=== PATIENT | female | born 1935 | race Caucasian/White ===

== ENCOUNTER 2019-11-03 13:02 | Inpatient (IN) | payer MEDICARE ==
[~2019-11-03] VITALS: Ht 160 cm; Wt 68.0 kg
[2019-11-03] MEDS ORDERED: NORVASC5 MG PO (13:27)
[2019-11-03] MEDS ORDERED: TYLENOL ARTHRI650 MG PO (13:27)
[2019-11-03] MEDS ORDERED: TENORMIN50 MG PO (13:28)
[2019-11-03] MEDS ORDERED: COLACE100 MG PO (13:28)
[2019-11-03] MEDS ORDERED: MELATONIN 3 MG1 TAB PO (13:28)
[2019-11-03] MEDS ORDERED: DEPAKOTE250 MG PO (13:28)
[2019-11-03] MEDS ORDERED: RESTORIL7.5 MG PO (13:29)
[2019-11-03] MEDS ORDERED: REMERON15 MG PO (13:29)
[2019-11-03 13:30] VITALS: BP 139/58
[2019-11-03 14:11] LABS: BASOPHILS 0.2 % (0-2); EOSINOPHILS 5.3 % (0-7); HEMATOCRIT 36.8 % (36.0-48.0); IMMATURE GRANULOCYTES 0.5 % (0-5); LYMPHOCYTES 18.4 % (15-50); MCH 31.6 pg (26.0-34.0); MCHC 32.6 g/dL (31.0-37.0); MCV 96.8 fL (80.0-100.0); MEAN PLATELET VOLUME 10.1 fL (7.4-10.4); NEUTROPHILS 71.6 % (40-80); PLATELET COUNT 170 10x3/uL (130-400); RDW 13.8 % (11.5-14.5); WBC 6.6 10x3/uL (4.8-10.8)
[2019-11-03 14:21] LABS: CALC OSMOLALITY 281 mosm/kg (275-300); CALCIUM 9.2 mg/dL (8.5-10.1); CARBON DIOXIDE 25.1 mmol/L (21.0-32.0); CHLORIDE - SERUM 104 mmol/L (98-107); CREATININE - SERUM 1.2 mg/dL (0.6-1.3); GLUCOSE 104 mg/dL (74-106); POTASSIUM - SERUM 4.5 mmol/L (3.5-5.1); SODIUM 138 mmol/L (136-145); UREA NITROGEN 30 mg/dL (7-18); eGFR NON AFRICAN AMERICAN 45 mL/min (90-120)
[2019-11-03 14:22] LABS: INR 1.22 (0.85-1.17); PROTIME 14.9 SECONDS (11.6-15.0)
[2019-11-03 14:31] VITALS: BP 124/77
[2019-11-03 14:36] LABS: ALBUMIN 3.1 g/dL (3.4-5.0); ALKALINE PHOSPHATASE 58 U/L (46-116); ALT (SGPT) 13 U/L (10-68); BILIRUBIN - TOTAL 0.26 mg/dL (0.2-1.3); CKMB 0.4 U/L (0.0-3.6); CREATINE KINASE 51 UL (21-215); MAGNESIUM - SERUM 1.9 mg/dL (1.8-2.4); PROTEIN - SERUM 7.9 g/dL (6.4-8.2); THYROID STIMULATING HORMONE 3.11 uIU/mL (0.36-3.74); TROPONIN-I < 0.017 ng/mL (0.000-0.060); VALPROIC ACID (DEPAKOTE) 36.2 ug/mL (50.0-100.0)
[2019-11-03 15:12] LABS: APPEARANCE HAZY (CLEAR); BILIRUBIN NEGATIVE (NEGATIVE); COLOR YELLOW (YELLOW); GLUCOSE NEGATIVE (NEGATIVE); KETONE NEGATIVE (NEGATIVE); NITRITE NEGATIVE (NEGATIVE); PROTEIN NEGATIVE (NEGATIVE); UROBILINOGEN NORMAL (NORMAL)
[2019-11-03 15:13] LABS: BACTERIA FEW /hpf (NEGATIVE); EPITHELIAL CELLS 0-5 /hpf (0-5); RED CELLS - URINE OCC /hpf (0-5); WHITE CELLS - URINE 0-5 /hpf (NEGATIVE)
[2019-11-03 15:22] LABS: UDS - AMPHET NEGATIVE QUAL (NEGATIVE); UDS - BARB NEGATIVE QUAL (NEGATIVE); UDS - BENZO NEGATIVE QUAL (NEGATIVE); UDS - COCAINE NEGATIVE QUAL (NEGATIVE); UDS - OPIATE NEGATIVE QUAL (NEGATIVE); UDS - PCP NEGATIVE QUAL (NEGATIVE); UDS - THC NEGATIVE QUAL (NEGATIVE)
[2019-11-03 15:30] VITALS: BP 122/78
[2019-11-03 16:17] VITALS: BP 135/104
--- NOTE | 2019-11-03 17:17 | NUR ---
ATTEMPT TO CALL REPORT AGAIN, NURSE IS BUSY.
--- NOTE | 2019-11-03 18:23 | NUR ---
CONFUSED. ARRIVE TO ROOM VIA STRETCHER. TRANSFER TO BED. FAMILY AT BEDSIDE. MED REC COMPLETE ACCORDING TO OK RECORDS THAT WERE SENT. BED ALARM ON. IV INFUSING ORDERED. BUZZ NOLAN AT BEDSIDE. CONTINUE ADMISSION PROCESS AND SAFETY PRECAUTIONS.
[2019-11-03 18:25] VITALS: BP 106/87; BMI 26.6
--- NOTE | 2019-11-03 19:00 | NUR ---
EVENING ROUNDS COMPLETE, PT LAYING IN BED. NO SIGNS OF DISTRESS. GENERALIZED RED RASH NOTED. PT IS CONFUSED AND DISORIENTATED TO SELF, SITUATION, PLACE AND TIME. CL IN REACH, BED IN LOWEST POSITION.
[2019-11-04] VITALS: BP 126/51
[2019-11-04 04:00] VITALS: BP 148/84
[2019-11-04 06:06] LABS: BASOPHILS 0.2 % (0-2); EOSINOPHILS 0.7 % (0-7); HEMOGLOBIN 10.8 g/dL (12-16); IMMATURE GRANULOCYTES 0.2 % (0-5); MCH 31.2 pg (26.0-34.0); MCHC 32.7 g/dL (31.0-37.0); MCV 95.4 fL (80.0-100.0); MEAN PLATELET VOLUME 10.4 fL (7.4-10.4); MONOCYTES 4.1 % (2-11); NEUTROPHILS 76.8 % (40-80); PLATELET COUNT 158 10x3/uL (130-400); RBC 3.46 10x6/uL (4.00-5.40); RDW 13.8 % (11.5-14.5); WBC 5.8 10x3/uL (4.8-10.8)
[2019-11-04 06:12] LABS: ANION GAP 14.8 mmol/L (8-16); C-REACTIVE PROTEIN 3.3 mg/dL (0.0-0.9); CALCIUM 8.9 mg/dL (8.5-10.1); CARBON DIOXIDE 25.9 mmol/L (21.0-32.0); MAGNESIUM - SERUM 1.8 mg/dL (1.8-2.4); POTASSIUM - SERUM 4.7 mmol/L (3.5-5.1)
[2019-11-04 08:00] VITALS: BP 120/54
[2019-11-04 08:09] LABS: ERYTHROCYTE SEDIMENTATION RATE 42 mm/hr (0-42)
[2019-11-04 11:36] VITALS: BP 94/58
[2019-11-04 16:04] VITALS: BP 105/63
--- NOTE | 2019-11-04 17:37 | NUR ---
DRESSING TO RIGHT FOOT CHANGED AND PT TOLERATES WELL. STATES THE NORCO THAT WAS GIVEN TO HIM TODAY HAS MADE HIM SICK AND IS NOW THROWING UP. NO EMESIS NOTED IN [place] AT BEDSIDE. PT HAS BEEN INFORMED OF NPO AT MIDNIGHT AND CONSENT FORMS FOR THORACENTESIS HAVE BEEN SIGNED. PT HAS NO QUESTIONS ABOUT THE PROCEDURE, STATES HE JUST WANTS TO SLEEP TONIGHT.
--- NOTE | 2019-11-04 17:45 | NUR ---
PT HAS BEEN LETHARGIC MOST OF THE DAY AND AT ONE POINT BLOOD SUGAR WAS CHECKED AT REQUEST OF FILES SUPERVISOR WITH READING OF 86. PT IS NOW STARTING TO WAKE UP AND HAS BEEN GETTING UP OUT OF BED, PULLING AT IV AND STATES HE NEEDS TO GET OUT OF HERE TO GET TO THE BUS. ATTEMPTED TO REORIENT PT TO SURROUNDINGS.
--- NOTE | 2019-11-04 18:06 | NUR ---
I CONCUR WITH THE HVAC JOURNEYMAN ASSESSMENT OF THIS PATIENT.
--- NOTE | 2019-11-04 20:00 | NUR ---
IV STARTED TO LEFT FOREARM, 22G, X 1 ATTEMPT. WRAPPED IN KERLEX TO HELP PREVENT PT FROM REMOVING THIS IV SHE DID HER LAST ONE.
[2019-11-04 20:15] VITALS: BP 142/84
[2019-11-05] VITALS: BP 127/55
[2019-11-05 00:30] VITALS: BP 114/62
--- NOTE | 2019-11-05 04:00 | NUR ---
PT REFUSING VITAL SIGNS. SHE STATES I WILL BREAK YOUR ARM WHEN ATTEMPTED TO GET HER VITALS. RESPIRATIONS EVEN AND UNLABORED. BED LOW, BED ALARM ON AND CALL LIGHT WITHIN REACH.
--- NOTE | 2019-11-05 04:25 | NUR ---
WENT TO CHECK ON PT AND SHE HAD PULLED HER IV OUT. SHE IS CONFUSED. UNABLE TO REORIENT. NEW 22G IV STARTED TO LEFT FOREARM X 2 ATTEMPTS. BED LOW AND BED ALARM ON.
[2019-11-05 05:21] LABS: BASOPHILS 0.1 % (0-2); EOSINOPHILS 2.1 % (0-7); HEMATOCRIT 33.4 % (36.0-48.0); HEMOGLOBIN 10.8 g/dL (12-16); IMMATURE GRANULOCYTES 0.6 % (0-5); LYMPHOCYTES 20.6 % (15-50); MCHC 32.3 g/dL (31.0-37.0); MEAN PLATELET VOLUME 10.3 fL (7.4-10.4); MONOCYTES 5.4 % (2-11); NEUTROPHILS 71.2 % (40-80); PLATELET COUNT 183 10x3/uL (130-400); RBC 3.48 10x6/uL (4.00-5.40); RDW 13.8 % (11.5-14.5)
[2019-11-05 05:32] LABS: WBC 8.2 10x3/uL (4.8-10.8)
[2019-11-05 05:41] LABS: ANION GAP 14.2 mmol/L (8-16); CALCIUM 9.1 mg/dL (8.5-10.1); CARBON DIOXIDE 25.4 mmol/L (21.0-32.0); CREATININE - SERUM 1.1 mg/dL (0.6-1.3); PHOSPHOROUS 2.6 mg/dL (2.5-4.9); POTASSIUM - SERUM 4.6 mmol/L (3.5-5.1)
--- NOTE | 2019-11-05 07:42 | NUR ---
ASSISSTED PCT WITH CLEANING THE PTS INCONTINENT EPISODE. NOTICED IV WAS BEEPING. ASSESSED IV SIT TO FIND THAT THE IV WAS NOT IN THE PATIENTS ARM AND WAS JUST WRAPPED WITH KERLEX. REMOVED IV. WILL RESTART IV. PT IS CONFUSED AND STATING THAT SHE IS COLD. WARM BLANKET PROVIDED.
[2019-11-05 09:42] VITALS: BP 145/88
[2019-11-05 13:44] VITALS: Ht 160 cm; Wt 68.0 kg
[2019-11-05 16:30] VITALS: BP 125/91
--- NOTE | 2019-11-05 16:59 | MORECARE ---
CASE MANAGEMENT DISCHARGE SUMMARY PATIENT: NADER KELLER UNIT: [id number] ADM DATE: 11/03/19 AGE: 83 : 33 SEX: F ROOM/BED: D.2104 AUTHOR: BOOGIE WONG PHYSICIAN: REFERRING PHYSICIAN: LUDIN BERNARDO MD DATE OF SERVICE: 11/05/19 Discharge Plan Patient Name: NADER KELLER [facility] [facility] 1935 Planned Disposition: Longterm Facility Anticipated Discharge Date: 11/05/19 Discharge Date: Expected LOS: 2 Initial Reviewer: [id number] Initial Review Date: 11/05/2019 Generated: 11/05/19 5:59 pm Patient Name: NADER KELLER Page 64785 at 7292 All edits/amendments must be made on the electronic document DICTATION DATE: 11/05/191658 HIDE AND SKIN PROCESSING WORKER: MYLES 11/05/191658 RPT#: [id number] DC DATE: STATUS: ADM IN [facility] [address] [place] [address] END OF REPORT
--- NOTE | 2019-11-05 17:08 | MORECARE ---
CASE MANAGEMENT DISCHARGE SUMMARY PATIENT: NADER KELLER UNIT: [id number] ADM DATE: 11/03/19 AGE: 83 : 33 SEX: F ROOM/BED: D.2104 AUTHOR: JUDITH,DOC PHYSICIAN: REFERRING PHYSICIAN: LUDIN BERNARDO MD DATE OF SERVICE: 11/05/19 Discharge Plan Patient Name: NADER KELLER Facility: [facility]:[place] : 1935 Planned Disposition: Fci Facility Anticipated Discharge Date: 11/05/19 Discharge Date: Expected LOS: 2 Initial Reviewer: [id number] Initial Review Date: 11/05/2019 Generated: 11/05/19 6:08 pm Comments DCP- Discharge Planning Updated by [email or web address]: Marco Slade on 11/05/19 4:[address] Patient Name: NADER KELLER Admission Status: ER Accout number: [id number] Admission Date: 11-03-2019 : 1935 Admission Diagnosis: Attending: LUDIN BERNARDO Current LOS: 2 Anticipated DC Date: 11-05-2019 Planned Disposition: Fci Facility Primary Insurance: MEDICARE A & B PLANNED EXTERNAL PROVIDER: [facility], CUSTODIAL CARE MEDICAID BED Discharge Planning Comments: CM ATTEMPTED TO MEET WITH PT IN ROOM TO DISCUSS DISCHARGE NEEDS AND PLANNING, PT CONFUSED AND UNABLE TO PARTICIPATE. CM REVIEWED CHART WHICH INDICATES PT IS FROM [facility] AT [facility]. CM CALLED PT'S SON, TOBI BHARDWAJ, LEFT MESSAGE ASKING FOR RETURN CALL. CM CALLED [facility], . SPOKE TO TAYO WHO VERIFIED PT IS CUSTODIAL CARE RESIDENT AND THEY PLAN TO ACCEPT BACK AT DISCHARGE. TAYO PROVIDED SOCIAL SECURITY NUMBER AND CM PROVIDED IT TO HOSPITAL REGISTRATION. CM FAXED UPDATE TO [facility] AT [phone]. CM TO FOLLOW UP WITH SON, TOBI BHARDWAJ, TO COMPLETE CHOICE LETTER FOR [facility]. FOR DISCHARGE BACK TO [facility], FAX DISCHARGE INFORMATION TO [facility] AT [phone], NURSE REPORT TO BE CALLED TO [facility] AT [phone]. PT TO TRANSPORT VIA AMBULANCE. MARCO SLADE CASE MANAGEMENT DCPIA - Discharge Planning Initial Assessment Updated by [email or web address]: Marco Slade on 11/05/19 5:00 pm * Is the patient Alert and Oriented? No * How many steps to enter\exit or inside your home? NONE * PCP DR. FERNANDEZ * [facility] * Preadmission Environment [facility] * Facility Name [facility] * ADLs Total Dependent * Equipment Other * Other Equipment ALL MEDICAL EQUIPMENT PROVIDED BY FACILITY * List name and contact numbers for known caregivers / representatives who currently or will assist patient after discharge: TOBI BHARDWAJ, SON, * Verbal permission to speak to the caregivers and representatives has been obtained from the patient. N/A * Community resources currently utilized None * Please name any agencies selected above. NONE * Additional services required to return to the preadmission environment? No * Can the patient safely return to the preadmission environment? Yes * Has this patient been hospitalized within the prior 30 days at any hospital? No External Providers External Provider: [facility] Next Contact Date: 11/05/2019 Service Request Date: Service Type: Resolution: Reviewer: Comments: Patient Name: NADER KELLER Page 50779 at 1708 All edits/amendments must be made on the electronic document DICTATION DATE: 11/05/191707 FORM RAISER: MYLES 11/05/191707 RPT#: [id number] DC DATE: STATUS: ADM IN [facility] [address] [place] [address] END OF REPORT
--- NOTE | 2019-11-05 17:18 | MORECARE ---
CASE MANAGEMENT DISCHARGE SUMMARY PATIENT: NADER KELLER UNIT: [id number] ADM DATE: 11/03/19 AGE: 83 : 33 SEX: F ROOM/BED: D.2104 AUTHOR: JUDITH,DOC PHYSICIAN: REFERRING PHYSICIAN: LUDIN BERNARDO MD DATE OF SERVICE: 11/05/19 Discharge Plan Patient Name: NADER KELLER Facility: [facility]:[place] : 1935 Planned Disposition: Senior Care Facility Anticipated Discharge Date: 11/05/19 Discharge Date: Expected LOS: 2 Initial Reviewer: [email or web address] Initial Review Date: 11/05/2019 Generated: 11/05/19 6:17 pm Comments DCP- Discharge Planning Updated by [email or web address]: Marco Slade on 11/05/19 4:[address] Patient Name: NADER KELLER Admission Status: ER Accout number: [id number] Admission Date: 11-03-2019 : 1935 Admission Diagnosis: Attending: LUDIN BERNARDO Current LOS: 2 Anticipated DC Date: 11-05-2019 Planned Disposition: Senior Care Facility Primary Insurance: MEDICARE A & B PLANNED EXTERNAL PROVIDER: [facility], ALF CARE MEDICAID BED Discharge Planning Comments: CM ATTEMPTED TO MEET WITH PT IN ROOM TO DISCUSS DISCHARGE NEEDS AND PLANNING, PT CONFUSED AND UNABLE TO PARTICIPATE. CM REVIEWED CHART WHICH INDICATES PT IS FROM [facility] AT [facility]. CM CALLED PT'S SON, TOBI BHARDWAJ, LEFT MESSAGE ASKING FOR RETURN CALL. CM CALLED [facility], . SPOKE TO TAYO WHO VERIFIED PT IS ALF CARE RESIDENT AND THEY PLAN TO ACCEPT BACK AT DISCHARGE. TAYO PROVIDED SOCIAL SECURITY NUMBER AND CM PROVIDED IT TO HOSPITAL REGISTRATION. CM FAXED UPDATE TO [facility] AT [phone]. CM TO FOLLOW UP WITH SON, TOBI BHARDWAJ, TO COMPLETE CHOICE LETTER FOR [facility]. FOR DISCHARGE BACK TO [facility], FAX DISCHARGE INFORMATION TO [facility] AT [phone], NURSE REPORT TO BE CALLED TO [facility] AT [phone]. PT TO TRANSPORT VIA AMBULANCE. MARCO SLADE CASE MANAGEMENT DCPIA - Discharge Planning Initial Assessment Updated by [id number]: Marco Slade on 11/05/19 5:00 pm * Is the patient Alert and Oriented? No * How many steps to enter\exit or inside your home? NONE * PCP DR. FERNANDEZ * [facility] * Preadmission Environment [facility] * Facility Name [facility] * ADLs Total Dependent * Equipment Other * Other Equipment ALL MEDICAL EQUIPMENT PROVIDED BY FACILITY * List name and contact numbers for known caregivers / representatives who currently or will assist patient after discharge: TOBI BHARDWAJ, SON, * Verbal permission to speak to the caregivers and representatives has been obtained from the patient. N/A * Community resources currently utilized None * Please name any agencies selected above. NONE * Additional services required to return to the preadmission environment? No * Can the patient safely return to the preadmission environment? Yes * Has this patient been hospitalized within the prior 30 days at any hospital? No Last DP export: 11/05/19 4:08 pm Patient Name: NADER KELLER Page 16182 at 1718 All edits/amendments must be made on the electronic document DICTATION DATE: 11/05/191716 PARTS CLEANER: MYLES 11/05/191716 RPT#: [id number] DC DATE: STATUS: ADM IN [facility] [address] [place] [address] END OF REPORT
[2019-11-05 23:41] VITALS: BP 140/76
--- NOTE | 2019-11-06 00:06 | NUR ---
PT LYING IN BED RESTING WITH EYES CLOSED. SHOWS SIGNS OF BEING LETHARGIC. VITAL SIGNS ARE STABLE AND RESPIRATIONS EVEN AND UNLABORED. NO SIGNS OR SYMPTOMS OD DISTRESS. CONFUSED x4. INCONTINENT TO BOWELL AND URINE. WAS COMBATIVE AT BEGINNING OF SHIFT, NOW IS RESTING IN BED. CAN NOT TAKE MEDICATION DUE TO BEING LETHARGIC. REPOSITIONED PT AND PLACED CALL LIGHT AND ALL BELONGINGS WITHIN REACH. BED IN LOWEST POSITION ANDBED ALARM IS ACTIVE. WILL CONTINE TO MONITOR.
--- NOTE | 2019-11-06 04:24 | NUR ---
I have reviewed this patient and I concur with the Shift Assessment completed by the Licensed Practical Nurse today this shift.
[2019-11-06 04:48] LABS: BASOPHILS 0.4 % (0-2); EOSINOPHILS 7.5 % (0-7); HEMATOCRIT 32.9 % (36.0-48.0); HEMOGLOBIN 10.6 g/dL (12-16); IMMATURE GRANULOCYTES 0.6 % (0-5); MCH 30.7 pg (26.0-34.0); MCHC 32.2 g/dL (31.0-37.0); MCV 95.4 fL (80.0-100.0); MEAN PLATELET VOLUME 9.6 fL (7.4-10.4); MONOCYTES 11.7 % (2-11); NEUTROPHILS 42.8 % (40-80); PLATELET COUNT 179 10x3/uL (130-400); RBC 3.45 10x6/uL (4.00-5.40); RDW 13.7 % (11.5-14.5); WBC 8.1 10x3/uL (4.8-10.8)
[2019-11-06 05:32] LABS: ANION GAP 11.3 mmol/L (8-16); CARBON DIOXIDE 28.2 mmol/L (21.0-32.0); CREATININE - SERUM 1.1 mg/dL (0.6-1.3); MAGNESIUM - SERUM 1.8 mg/dL (1.8-2.4); PHOSPHOROUS 2.6 mg/dL (2.5-4.9); POTASSIUM - SERUM 4.5 mmol/L (3.5-5.1)
--- NOTE | 2019-11-06 06:12 | NUR ---
LYING IN BED RESTING WITH EYES CLOSED. NO SIGNS OR SYMPTOMS OF RESPIRATORY DISTRESS. INCONTINENT OF BOWELL AND URINE. NO COMPLAINTS OF PAIN AT THIS TIME. WILL CONTINUE TO MONITOR
[2019-11-06 08:00] VITALS: BP 148/58
[2019-11-06 12:43] VITALS: BP 169/72
--- NOTE | 2019-11-06 15:40 | MORECARE ---
CASE MANAGEMENT DISCHARGE SUMMARY PATIENT: NADER KELLER UNIT: [id number] ADM DATE: 11/03/19 AGE: 83 : 33 SEX: F ROOM/BED: D.2104 AUTHOR: JUDITH,DOC PHYSICIAN: REFERRING PHYSICIAN: LUDIN BERNARDO MD DATE OF SERVICE: 11/06/19 Discharge Plan Patient Name: NADER KELLER Facility: [facility]:[place] : 1935 Planned Disposition: Custodial Facility Anticipated Discharge Date: 11/06/19 Discharge Date: Expected LOS: 3 Initial Reviewer: [email or web address] Initial Review Date: 11/05/2019 Generated: 11/06/19 4:40 pm Comments DCP- Discharge Planning Updated by [email or web address]: Marco Slade on 11/05/19 4:[address] Patient Name: NADER KELLER Admission Status: ER Accout number: [id number] Admission Date: 11-03-2019 : 1935 Admission Diagnosis: Attending: LUDIN BERNARDO Current LOS: 2 Anticipated DC Date: 11-05-2019 Planned Disposition: Custodial Facility Primary Insurance: MEDICARE A & B PLANNED EXTERNAL PROVIDER: [facility], [facility] MEDICAID BED Discharge Planning Comments: CM ATTEMPTED TO MEET WITH PT IN ROOM TO DISCUSS DISCHARGE NEEDS AND PLANNING, PT CONFUSED AND UNABLE TO PARTICIPATE. CM REVIEWED CHART WHICH INDICATES PT IS FROM [facility] AT [facility]. CM CALLED PT'S SON, TOBI BHARDWAJ, LEFT MESSAGE ASKING FOR RETURN CALL. CM CALLED [facility], . SPOKE TO TAYO WHO VERIFIED PT IS [facility] RESIDENT AND THEY PLAN TO ACCEPT BACK AT DISCHARGE. TAYO PROVIDED SOCIAL SECURITY NUMBER AND CM PROVIDED IT TO HOSPITAL REGISTRATION. CM FAXED UPDATE TO [facility] AT [phone]. CM TO FOLLOW UP WITH SON, TOBI BHARDWAJ, TO COMPLETE CHOICE LETTER FOR [facility]. FOR DISCHARGE BACK TO [facility], FAX DISCHARGE INFORMATION TO [facility] AT [phone], NURSE REPORT TO BE CALLED TO [facility] AT [phone]. PT TO TRANSPORT VIA AMBULANCE. MARCO SLADE CASE MANAGEMENT DCPIA - Discharge Planning Initial Assessment Updated by [email or web address]: Marco Slade on 11/05/19 5:00 pm * Is the patient Alert and Oriented? No * How many steps to enter\exit or inside your home? NONE * PCP DR. FERNANDEZ * [facility] * Preadmission Environment [facility] * Facility Name [facility] * ADLs Total Dependent * Equipment Other * Other Equipment ALL MEDICAL EQUIPMENT PROVIDED BY FACILITY * List name and contact numbers for known caregivers / representatives who currently or will assist patient after discharge: TOBI BHARDWAJ, SON, * Verbal permission to speak to the caregivers and representatives has been obtained from the patient. N/A * Community resources currently utilized None * Please name any agencies selected above. NONE * Additional services required to return to the preadmission environment? No * Can the patient safely return to the preadmission environment? Yes * Has this patient been hospitalized within the prior 30 days at any hospital? No Last DP export: 11/05/19 4:18 pm Patient Name: NADER KELLER Page 52611 at 1540 All edits/amendments must be made on the electronic document DICTATION DATE: 11/06/19 1540 UTILITY SERVICE WORKER: MYLES 11/06/19 1540 RPT#: [id number] DC DATE: STATUS: ADM IN [facility] [address] [place] [address] END OF REPORT
--- NOTE | 2019-11-06 15:50 | MORECARE ---
CASE MANAGEMENT DISCHARGE SUMMARY PATIENT: NADER KELLER UNIT: [id number] ADM DATE: 11/03/19 AGE: 83 : 33 SEX: F ROOM/BED: D.2104 AUTHOR: JUDITH,DOC PHYSICIAN: REFERRING PHYSICIAN: LUDIN BERNARDO MD DATE OF SERVICE: 11/06/19 Discharge Plan Patient Name: NADER KELLER Facility: [facility]:[place] : 1935 Planned Disposition: Senior Care Facility Anticipated Discharge Date: 11/06/19 Discharge Date: Expected LOS: 3 Initial Reviewer: [id number] Initial Review Date: 11/05/2019 Generated: 11/06/19 4:50 pm Comments DCP- Discharge Planning Updated by [email or web address]: Marco Slade on 11/05/19 4:[address] Patient Name: NADER KELLER Admission Status: ER Accout number: [id number] Admission Date: 11-03-2019 : 1935 Admission Diagnosis: Attending: LUDIN BERNARDO Current LOS: 2 Anticipated DC Date: 11-05-2019 Planned Disposition: Senior Care Facility Primary Insurance: MEDICARE A & B PLANNED EXTERNAL PROVIDER: [facility], [facility] MEDICAID BED Discharge Planning Comments: CM ATTEMPTED TO MEET WITH PT IN ROOM TO DISCUSS DISCHARGE NEEDS AND PLANNING, PT CONFUSED AND UNABLE TO PARTICIPATE. CM REVIEWED CHART WHICH INDICATES PT IS FROM [facility] AT [facility]. CM CALLED PT'S SON, TOBI BHARDWAJ, LEFT MESSAGE ASKING FOR RETURN CALL. CM CALLED [facility], . SPOKE TO TAYO WHO VERIFIED PT IS [facility] RESIDENT AND THEY PLAN TO ACCEPT BACK AT DISCHARGE. TAYO PROVIDED SOCIAL SECURITY NUMBER AND CM PROVIDED IT TO HOSPITAL REGISTRATION. CM FAXED UPDATE TO [facility] AT [phone]. CM TO FOLLOW UP WITH SON, TOBI BHARDWAJ, TO COMPLETE CHOICE LETTER FOR [facility]. FOR DISCHARGE BACK TO [employer] [employer] [facility], FAX DISCHARGE INFORMATION TO [facility] AT [phone], NURSE REPORT TO BE CALLED TO [facility] AT [phone]. PT TO TRANSPORT VIA AMBULANCE. MARCO SLADE CASE MANAGEMENT DCPIA - Discharge Planning Initial Assessment Updated by [email or web address]: Marco Slade on 11/05/19 5:00 pm * Is the patient Alert and Oriented? No * How many steps to enter\exit or inside your home? NONE * PCP DR. FERNANDEZ * [facility] * Preadmission Environment [facility] * Facility Name [facility] * ADLs Total Dependent * Equipment Other * Other Equipment ALL MEDICAL EQUIPMENT PROVIDED BY FACILITY * List name and contact numbers for known caregivers / representatives who currently or will assist patient after discharge: TOBI BHARDWAJ, SON, * Verbal permission to speak to the caregivers and representatives has been obtained from the patient. N/A * Community resources currently utilized None * Please name any agencies selected above. NONE * Additional services required to return to the preadmission environment? No * Can the patient safely return to the preadmission environment? Yes * Has this patient been hospitalized within the prior 30 days at any hospital? No External Providers External Provider: [facility] Next Contact Date: 11/05/2019 Service Request Date: Service Type: Resolution: Reviewer: Comments: Last DP export: 11/06/19 2:40 pm Patient Name: NADER KELLER Page 85354 at 1550 All edits/amendments must be made on the electronic document DICTATION DATE: 11/06/19 155 SIGN ARTIST: MYLES 11/06/19 1550 RPT#: [id number] DC DATE: STATUS: ADM IN [facility] [address] [place] [address] END OF REPORT
--- NOTE | 2019-11-06 16:02 | MORECARE ---
CASE MANAGEMENT DISCHARGE SUMMARY PATIENT: NADER KELLER UNIT: [id number] ADM DATE: 11/03/19 AGE: 83 : 33 SEX: F ROOM/BED: D.2104 AUTHOR: JUDITH,DOC PHYSICIAN: REFERRING PHYSICIAN: LUDIN BERNARDO MD DATE OF SERVICE: 11/06/19 Discharge Plan Patient Name: NADER KELLER Facility: [facility]:[place] : 1935 Planned Disposition: Long-Term Facility Anticipated Discharge Date: 11/07/19 Discharge Date: Expected LOS: 4 Initial Reviewer: [email or web address] Initial Review Date: 11/05/2019 Generated: 11/06/19 5:01 pm Comments DCP- Discharge Planning Updated by [email or web address]: Marco Slade on 11/06/19 2:[address] Patient Name: NADER KELLER Encounter No: [id number] : 1935 Primary Insurance: MEDICARE A & B Anticipated DC Date: 11-07-2019 Planned Disposition: Long-Term Facility External Planned Provider: [facility], WELDING MACHINE ASSEMBLER CARE MEDICAID BED Discharge Planning Comments: [facility], SKILLED NURSING CARE MEDICAID BED Discharge Planning Comments: MIGUEL CALLED PT'S SON, TOBI BHARDWAJ,[phone]; TOBI VERIFIED THAT PT IS IN SKILLED NURSING CARE AT [facility] AND WILL RETURN THERE AT DISCHARGE. CHOICE COMPLETED. CM LATER MET TOBI IN PT'S ROOM, IMPORTANT MESSAGE FROM MEDICARE PROVIDED AND EXPLAINED. MIGUEL SPOKE TO BUZZ MACDONALD WHO ASKED TO DISCHARGE PT BACK TO GROUP [facility] TODAY. CM CALLED [facility], . SPOKE TO TAYO WHO VERIFIED PT IS WELDING MACHINE ASSEMBLER CARE RESIDENT AND THEY PLAN TO ACCEPT BACK AT DISCHARGE BUT CANNOT ACCEPT BACK UNTIL TOMORROW. TAYO ASKED FOR UPDATE AND DISCHARGE INFORMATION TO PROCESS ADMISSION TODAY FOR IN THE MORNING. MIGUEL FAXED UPDATE TO [facility] AT [phone]. FOR DISCHARGE BACK TO [facility] 11-07-18, NURSE REPORT TO BE CALLED TO [facility] AT [phone]. PT TO TRANSPORT VIA AMBULANCE. CHANTELL GUZMAN DCP- Discharge Planning Updated by [email or web address]: Marco Slade on 11/05/19 4:[address] Patient Name: NADER KELLER Admission Status: ER Accout number: [id number] Admission Date: 11-03-2019 : 1935 Admission Diagnosis: Attending: LUDIN BERNARDO Current LOS: 2 Anticipated DC Date: 11-05-2019 Planned Disposition: Long-Term Facility Primary Insurance: MEDICARE A & B PLANNED EXTERNAL PROVIDER: [facility], SKILLED NURSING CARE MEDICAID BED Discharge Planning Comments: CM ATTEMPTED TO MEET WITH PT IN ROOM TO DISCUSS DISCHARGE NEEDS AND PLANNING, PT CONFUSED AND UNABLE TO PARTICIPATE. CM REVIEWED CHART WHICH INDICATES PT IS FROM [facility] AT [facility]. CM CALLED PT'S SON, TOBI BHARDWAJ, LEFT MESSAGE ASKING FOR RETURN CALL. CM CALLED [facility], . SPOKE TO TAYO WHO VERIFIED PT IS WELDING MACHINE ASSEMBLER CARE RESIDENT AND THEY PLAN TO ACCEPT BACK AT DISCHARGE. TAYO PROVIDED SOCIAL SECURITY NUMBER AND CM PROVIDED IT TO HOSPITAL REGISTRATION. CM FAXED UPDATE TO [facility] AT [phone]. CM TO FOLLOW UP WITH SON, TOBI BHARDWAJ, TO COMPLETE CHOICE LETTER FOR [facility]. FOR DISCHARGE BACK TO [facility], FAX DISCHARGE INFORMATION TO [facility] AT [phone], NURSE REPORT TO BE CALLED TO [facility] AT [phone]. PT TO TRANSPORT VIA AMBULANCE. MARCO SLADE, CASE MANAGEMENT DCPIA - Discharge Planning Initial Assessment Updated by [id number]: Marco Slade on 11/05/19 5:00 pm * Is the patient Alert and Oriented? No * How many steps to enter\exit or inside your home? NONE * PCP DR. FERNANDEZ * [facility] * Preadmission Environment [facility] * Facility Name [facility] * ADLs Total Dependent * Equipment Other * Other Equipment ALL MEDICAL EQUIPMENT PROVIDED BY FACILITY * List name and contact numbers for known caregivers / representatives who currently or will assist patient after discharge: TOBI BHARDWAJ, SON, * Verbal permission to speak to the caregivers and representatives has been obtained from the patient. N/A * Community resources currently utilized None * Please name any agencies selected above. NONE * Additional services required to return to the preadmission environment? No * Can the patient safely return to the preadmission environment? Yes * Has this patient been hospitalized within the prior 30 days at any hospital? No Coverage Notice Reviewer: [id number] Samantha Slade Notice Issued Date-Time: 11/06/2019 8:00 Notice Type: Patient Choice Letter Notice Delivered To: Family Member Relationship to Patient: Son Beauty Culturist Name: TOBI BHARDWAJ Delivery Method: HAND - Hand Delivered Marilyn Days: Prior Verbal Notification: Recipient Understood Notice: Yes Recipient Signature: Yes Med Rec Note Co-signed by Attending: Coverage Notice Comment: HARRIETT Reviewer: [id number] Samantha Slade Notice Issued Date-Time: 11/06/2019 11:30 Notice Type: IM Discharge Notice Notice Delivered To: Family Member Relationship to Patient: Son Beauty Culturist Name: TOBI BHARDWAJ Delivery Method: HAND - Hand Delivered Marilyn Days: Prior Verbal Notification: Recipient Understood Notice: Yes Recipient Signature: Yes Med Rec Note Co-signed by Attending: Coverage Notice Comment: Last DP export: 11/06/19 2:50 pm Patient Name: NADER KELLER Page 76419 at 1602 All edits/amendments must be made on the electronic document DICTATION DATE: 11/06/19 1601 SADDLE STITCHING MACHINE OPERATOR: MYLES 11/06/19 1601 RPT#: [id number] DC DATE: STATUS: ADM IN [facility] [address] [place] [address] END OF REPORT
[2019-11-06] MEDS ORDERED: Levaquin PO (16:04)
[2019-11-06 16:13] VITALS: BP 145/64
[2019-11-06 20:00] VITALS: BP 116/82
[2019-11-07] VITALS: BP 123/64
[2019-11-07 04:00] VITALS: BP 134/68
[2019-11-07 05:09] LABS: BASOPHILS 0.3 % (0-2); EOSINOPHILS 1.1 % (0-7); HEMATOCRIT 33.3 % (36.0-48.0); HEMOGLOBIN 10.8 g/dL (12-16); IMMATURE GRANULOCYTES 0.6 % (0-5); MCHC 32.4 g/dL (31.0-37.0); MCV 95.7 fL (80.0-100.0); MEAN PLATELET VOLUME 9.8 fL (7.4-10.4); MONOCYTES 8.6 % (2-11); NEUTROPHILS 66.4 % (40-80); PLATELET COUNT 194 10x3/uL (130-400); RBC 3.48 10x6/uL (4.00-5.40); RDW 13.7 % (11.5-14.5); WBC 6.2 10x3/uL (4.8-10.8)
[2019-11-07 05:31] LABS: ANION GAP 13.1 mmol/L (8-16); CALCIUM 8.9 mg/dL (8.5-10.1); CARBON DIOXIDE 26.3 mmol/L (21.0-32.0); MAGNESIUM - SERUM 1.8 mg/dL (1.8-2.4); PHOSPHOROUS 3.3 mg/dL (2.5-4.9); POTASSIUM - SERUM 4.4 mmol/L (3.5-5.1)
[2019-11-07 07:56] VITALS: BP 159/92
--- NOTE | 2019-11-07 09:18 | NUR ---
REPORT CALLED TO PRATIMA FUENTES AT [facility] FOR PT RETURNING.
--- NOTE | 2019-11-07 10:23 | NUR ---
PT RETURNING BACK TO [facility] VIA [facility]. DRESSED WITH DEPENDS FOR TRANSPORT. DENTURES SENT WITH EMS IN BAG. DISCHARGE INSTRUCTIONS SENT ALSO.
--- NOTE | 2019-11-08 10:40 | MORECARE ---
CASE MANAGEMENT DISCHARGE SUMMARY PATIENT: NADER KELLER UNIT: [id number] ADM DATE: 11/03/19 AGE: 83 : 33 SEX: F ROOM/BED: D.2104 AUTHOR: JUDITH,DOC PHYSICIAN: REFERRING PHYSICIAN: LUDIN BERNARDO MD DATE OF SERVICE: 11/08/19 Discharge Plan Patient Name: NADER KELLER Facility: [facility]:[place] : 1935 Planned Disposition: [facility] Facility Anticipated Discharge Date: 11/07/19 Discharge Date: 11/07/2019 Expected LOS: 4 Initial Reviewer: [id number] Initial Review Date: 11/05/2019 Generated: 11/08/19 11:39 am Comments DCP- Discharge Planning Updated by [id number]: Marco Slade on 11/06/19 2:[address] Patient Name: NADER KELLER Encounter No: [id number] : 1935 Primary Insurance: MEDICARE A & B Anticipated DC Date: 11-07-2019 Planned Disposition: [facility] Facility External Planned Provider: [facility], [facility] MEDICAID BED Discharge Planning Comments: [facility], [facility] MEDICAID BED Discharge Planning Comments: MIGUEL CALLED PT'S SON, TOBI BHARDWAJ,[phone]; TOBI VERIFIED THAT PT IS IN [facility] AT [facility] AND WILL RETURN THERE AT DISCHARGE. CHOICE COMPLETED. CM LATER MET TOBI IN PT'S ROOM, IMPORTANT MESSAGE FROM MEDICARE PROVIDED AND EXPLAINED. MIGUEL SPOKE TO BUZZ MACDONALD WHO ASKED TO DISCHARGE PT BACK TO [facility] TODAY. CM CALLED [facility], . SPOKE TO TAYO WHO VERIFIED PT IS [facility] RESIDENT AND THEY PLAN TO ACCEPT BACK AT DISCHARGE BUT CANNOT ACCEPT BACK UNTIL TOMORROW. TAYO ASKED FOR UPDATE AND DISCHARGE INFORMATION TO PROCESS ADMISSION TODAY FOR IN THE MORNING. MIGUEL FAXED UPDATE TO [facility] AT [phone]. FOR DISCHARGE BACK TO [facility] 11-07-18, NURSE REPORT TO BE CALLED TO [facility] AT [phone]. PT TO TRANSPORT VIA AMBULANCE. CHANTELL GUZMAN MANAGEMENT DCP- Discharge Planning Updated by [id number]: Marco Slade on 11/05/19 4:[address] Patient Name: NADER KELLER Admission Status: ER Accout number: [id number] Admission Date: 11-03-2019 : 1935 Admission Diagnosis: Attending: LUDIN BERNARDO Current LOS: 2 Anticipated DC Date: 11-05-2019 Planned Disposition: [facility] Facility Primary Insurance: MEDICARE A & B PLANNED EXTERNAL PROVIDER: [facility], [facility] MEDICAID BED Discharge Planning Comments: CM ATTEMPTED TO MEET WITH PT IN ROOM TO DISCUSS DISCHARGE NEEDS AND PLANNING, PT CONFUSED AND UNABLE TO PARTICIPATE. CM REVIEWED CHART WHICH INDICATES PT IS FROM [facility] AT [facility]. CM CALLED PT'S SON, TOBI BHARDWAJ, LEFT MESSAGE ASKING FOR RETURN CALL. CM CALLED [facility], . SPOKE TO TAYO WHO VERIFIED PT IS [facility] RESIDENT AND THEY PLAN TO ACCEPT BACK AT DISCHARGE. TAYO PROVIDED SOCIAL SECURITY NUMBER AND CM PROVIDED IT TO HOSPITAL REGISTRATION. CM FAXED UPDATE TO [facility] AT [phone]. CM TO FOLLOW UP WITH SON, TOBI BHARDWAJ, TO COMPLETE CHOICE LETTER FOR [facility]. FOR DISCHARGE BACK TO [facility], FAX DISCHARGE INFORMATION TO [facility] AT [phone], NURSE REPORT TO BE CALLED TO [facility] AT [phone]. PT TO TRANSPORT VIA AMBULANCE. MARCO SLADE, CASE MANAGEMENT DCPIA - Discharge Planning Initial Assessment Updated by [id number]: Marco Slade on 11/05/19 5:00 pm * Is the patient Alert and Oriented? No * How many steps to enter\exit or inside your home? NONE * PCP DR. FERNANDEZ * Pharmacy [facility] * Preadmission Environment [facility] * Facility Name [facility] * ADLs Total Dependent * Equipment Other * Other Equipment ALL MEDICAL EQUIPMENT PROVIDED BY FACILITY * List name and contact numbers for known caregivers / representatives who currently or will assist patient after discharge: TOBI BHARDWAJ, SON, * Verbal permission to speak to the caregivers and representatives has been obtained from the patient. N/A * Community resources currently utilized None * Please name any agencies selected above. NONE * Additional services required to return to the preadmission environment? No * Can the patient safely return to the preadmission environment? Yes * Has this patient been hospitalized within the prior 30 days at any hospital? No Coverage Notice Reviewer: [email or web address] Samantha Slade Notice Issued Date-Time: 11/06/2019 8:00 Notice Type: Patient Choice Letter Notice Delivered To: Family Member Relationship to Patient: Son Mercantile Reporter Name: TOBI BHARDWAJ Delivery Method: HAND - Hand Delivered Marilyn Days: Prior Verbal Notification: Recipient Understood Notice: Yes Recipient Signature: Yes Med Rec Note Co-signed by Attending: Coverage Notice Comment: HARRIETT Reviewer: [id number] Samantha Slade Notice Issued Date-Time: 11/06/2019 11:30 Notice Type: IM Discharge Notice Notice Delivered To: Family Member Relationship to Patient: Son Mercantile Reporter Name: TOBI BHARDWAJ Delivery Method: HAND - Hand Delivered Marilyn Days: Prior Verbal Notification: Recipient Understood Notice: Yes Recipient Signature: Yes Med Rec Note Co-signed by Attending: Coverage Notice Comment: Last DP export: 11/06/19 3:01 pm Patient Name: NADER KELLER Page [id number] at 1040 All edits/amendments must be made on the electronic document DICTATION DATE: 11/08/19 1039 PROTECTOR PLATE ATTACHER: MYLES 11/08/19 1039 RPT#: [id number] DC DATE:11/07/19 STATUS: DIS IN [facility] [address] [place] [address] END OF REPORT
== END 2019-11-07 10:27 | DRG 689 ==
LOC: D.ER 13:02 → D.M2 15:20
PROVIDERS: Emergency Medicine; Family Medicine; ADMIT Emergency Medicine; ATTEND Emergency Medicine
DX: N39.0 Urinary tract infection, site not specified (principal); G93.41 Metabolic encephalopathy; R21 Rash and other nonspecific skin eruption; E86.0 Dehydration; F03.90 Unspecified dementia, unspecified severity, without behavioral disturbance, psychotic disturbance, mood disturbance, and anxiety; K21.9 Gastro-esophageal reflux disease without esophagitis; I10 Essential (primary) hypertension; I48.91 Unspecified atrial fibrillation; Z86.73 Personal history of transient ischemic attack (TIA), and cerebral infarction without residual deficits

== ENCOUNTER 2019-11-09 15:31 | Inpatient (IN) | payer MEDICARE ==
[~2019-11-09] VITALS: Ht 160 cm; Wt 61.2 kg
[~2019-11-09 15:31] MED LIST: COLACE100 MG PO; DEPAKOTE250 MG PO; Levaquin PO; MELATONIN 3 MG1 TAB PO; NORVASC5 MG PO; REMERON15 MG PO; RESTORIL7.5 MG PO; TENORMIN50 MG PO; TYLENOL ARTHRI650 MG PO
[2019-11-09 15:56] LABS: BASOPHILS 0.4 % (0-2); EOSINOPHILS 0.4 % (0-7); HEMATOCRIT 33.1 % (36.0-48.0); HEMOGLOBIN 10.8 g/dL (12-16); IMMATURE GRANULOCYTES 0.5 % (0-5); LYMPHOCYTES 20.4 % (15-50); MCH 31.1 pg (26.0-34.0); MCHC 32.6 g/dL (31.0-37.0); MCV 95.4 fL (80.0-100.0); MEAN PLATELET VOLUME 9.4 fL (7.4-10.4); MONOCYTES 9.8 % (2-11); NEUTROPHILS 68.5 % (40-80); PLATELET COUNT 218 10x3/uL (130-400); RBC 3.47 10x6/uL (4.00-5.40); RDW 14.3 % (11.5-14.5); WBC 13.9 10x3/uL (4.8-10.8)
[2019-11-09 15:59] LABS: APTT 33.4 SECONDS (22.8-39.4); INR 1.21 (0.85-1.17); PROTIME 14.8 SECONDS (11.6-15.0)
[2019-11-09 16:01] LABS: CALC OSMOLALITY 278 mosm/kg (275-300); CARBON DIOXIDE 28.2 mmol/L (21.0-32.0); CHLORIDE - SERUM 104 mmol/L (98-107); POTASSIUM - SERUM 4.1 mmol/L (3.5-5.1); SODIUM 139 mmol/L (136-145); UREA NITROGEN 16 mg/dL (7-18); eGFR NON AFRICAN AMERICAN 56 mL/min (90-120)
[2019-11-09 16:03] LABS: GLUCOSE 94 mg/dL (74-106)
[2019-11-09 16:17] LABS: ALBUMIN 2.7 g/dL (3.4-5.0); ALKALINE PHOSPHATASE 47 U/L (46-116); ALT (SGPT) 17 U/L (10-68); BILIRUBIN - TOTAL 0.64 mg/dL (0.2-1.3); CKMB 0.4 U/L (0.0-3.6); CREATINE KINASE 32 UL (21-215); PROTEIN - SERUM 7.3 g/dL (6.4-8.2)
[2019-11-09 16:18] LABS: TROPONIN-I < 0.017 ng/mL (0.000-0.060)
[2019-11-09 17:29] LABS: APPEARANCE TURBID (CLEAR); BILIRUBIN NEGATIVE (NEGATIVE); COLOR YELLOW (YELLOW); GLUCOSE NEGATIVE (NEGATIVE); KETONE SMALL mg/dL (NEGATIVE); NITRITE POSITIVE (NEGATIVE); PROTEIN 1+ mg/dL (NEGATIVE); SPECIFIC GRAVITY 1.005 (1.005-1.020); UROBILINOGEN NORMAL (NORMAL)
[2019-11-09 17:30] LABS: BACTERIA MANY /hpf (NEGATIVE); EPITHELIAL CELLS 0-5 /hpf (0-5); RED CELLS - URINE 0-5 /hpf (0-5); WHITE CELLS - URINE >50 /hpf (NEGATIVE)
[2019-11-09 18:00] VITALS: BP 179/82
--- NOTE | 2019-11-09 18:39 | NUR ---
TRIED CALLING REPORT TO MED 2, THEY COULD NOT DECIDE WHO WAS TAKING TH REPORT SO I WAS ON HOLD OVER 5 MIN AND FINALLY HUNG UP.
--- NOTE | 2019-11-09 19:42 | NUR ---
REC'D PATIENT TO ROOM. PATIENT HAS NO S/S OF DISTRESS. PATIENT WAKES WHEN SPOKEN TO, HOWEVER, DRIFTS BACK TO SLEEP EASILY. PATIENT DOES NOT VERBALIZE NEEDS OR ANSWER QUESTIONS. SON AT BEDSIDE AND STATED THAT THE PATIENT NOT SPEAKING AND ANSWERING QUESTIONS IS NEW FOR HER. PATIENT HAS A DNR ORDER IN HER CHART FROM THE [facility], CONFIRMED WITH THE PATIENT'S SON THAT SHE IS A DNR. SON STATED HE IS GOING HOME FOR THE NIGHT AND WILL BE BACK IN THE MORNING. SET UP IV FLUIDS PER ORDERS. PATIENT'S BED IN LOWEST POSITION, CALL LIGHT WITHIN REACH, AND KAY ALARM ON. ENCOURAGED THE PATIENT TO CALL IF SHE HAS NEEDS. WILL CONTINUE TO MONITOR.
[2019-11-09 22:48] VITALS: BP 119/78; BMI 23.9
--- NOTE | 2019-11-10 | NUR ---
PATIENT RESTING IN BED WITH EYES CLOSED AND NO S/S OF DISTRESS. BED IN LOWEST POSITION, CALL LIGHT WITHIN REACH, AND KAY ALARM ON. WILL CONTINUE TO MONITOR.
--- NOTE | 2019-11-10 02:43 | NUR ---
ADDED PATIENT TO TELE WAIT LIST
--- NOTE | 2019-11-10 03:30 | NUR ---
PATIENT RESTING IN BED WITH NO S/S OF DISTRESS. BED IN LOWEST POSITION AND CALL LIGHT WITHIN REACH. WILL CONTINUE TO MONITOR.
--- NOTE | 2019-11-10 04:18 | NUR ---
PATIENT'S CHART FROM THE SHELTER STATES THAT THE PATIENT HAS NEW ONSET ALTERED MENTAL STATUS AND DIFFICULTY SWALLOWING. HELD NIGHT PO MEDS.
--- NOTE | 2019-11-10 05:12 | NUR ---
EMPTIED 900ML FROM PATIENT'S CATH BAG
[2019-11-10] MEDS ORDERED: NORVASC10 MG PO (06:16)
[2019-11-10] MEDS ORDERED: DEPAKOTE ER500 MG PO (06:18)
[2019-11-10] MEDS ORDERED: LEVOFLOXACIN500 MG PO (06:18)
[2019-11-10 06:47] LABS: APTT 35.2 SECONDS (22.8-39.4); INR 1.25 (0.85-1.17); PROTIME 15.2 SECONDS (11.6-15.0)
[2019-11-10 06:48] LABS: BASOPHILS 0.3 % (0-2); EOSINOPHILS 0.2 % (0-7); HEMATOCRIT 31.5 % (36.0-48.0); HEMOGLOBIN 10.2 g/dL (12-16); IMMATURE GRANULOCYTES 0.3 % (0-5); LYMPHOCYTES 13.1 % (15-50); MCH 31.3 pg (26.0-34.0); MCHC 32.4 g/dL (31.0-37.0); MCV 96.6 fL (80.0-100.0); MEAN PLATELET VOLUME 9.8 fL (7.4-10.4); MONOCYTES 11.9 % (2-11); NEUTROPHILS 74.2 % (40-80); PLATELET COUNT 189 10x3/uL (130-400); RBC 3.26 10x6/uL (4.00-5.40); RDW 14.1 % (11.5-14.5); WBC 12.6 10x3/uL (4.8-10.8)
--- NOTE | 2019-11-10 06:58 | MORECARE ---
CASE MANAGEMENT DISCHARGE SUMMARY PATIENT: NADER KELLER UNIT: [id number] ADM DATE: 11/09/19 AGE: 83 : 33 SEX: F ROOM/BED: D.2207 AUTHOR: BOOGIE WONG PHYSICIAN: REFERRING PHYSICIAN: ES BREWER MD DATE OF SERVICE: 11/10/19 Discharge Plan Patient Name: NADER KELLER Facility: [facility]:[place] : 1935 Planned Disposition: Nursing Facility CANDIDA Cert Anticipated Discharge Date: 11/12/19 Discharge Date: Expected LOS: 3 Initial Reviewer: [email or web address] Initial Review Date: 11/09/2019 Generated: 11/10/19 7:57 am DCPIA - Discharge Planning Initial Assessment Updated by [email or web address]: Saray Plummer on 11/10/19 6:56 am * Is the patient Alert and Oriented? No * How many steps to enter\exit or inside your home? None * PCP Resident at [facility]. Dr. Licona * Pharmacy [facility] * Preadmission Environment Assistant [employer] * Facility Name [facility] * ADLs Partial Dependent * Partial ADLs (Assistance needed) Ambulation Bathing Dressing Medication Management Toileting * List name and contact numbers for known caregivers / representatives who currently or will assist patient after discharge: Sam Good [facility] - [phone] * Verbal permission to speak to the caregivers and representatives has been obtained from the patient. Yes * Additional services required to return to the preadmission environment? No * Can the patient safely return to the preadmission environment? Yes * Has this patient been hospitalized within the prior 30 days at any hospital? Yes Patient Name: NADER KELLER Page 13863 at 0658 All edits/amendments must be made on the electronic document DICTATION DATE: 11/10/19656 CASSANDRA ARCHITECT: MYLES 11/10/19656 RPT#: [id number] DC DATE: STATUS: ADM IN [facility] [address] [place] [address] END OF REPORT
[2019-11-10 07:00] VITALS: BP 178/87
--- NOTE | 2019-11-10 07:04 | MORECARE ---
CASE MANAGEMENT DISCHARGE SUMMARY PATIENT: NADER KELLER UNIT: [id number] ADM DATE: 11/09/19 AGE: 83 : 33 SEX: F ROOM/BED: D.2207 AUTHOR: JUDITH,DOC PHYSICIAN: REFERRING PHYSICIAN: ES BREWER MD DATE OF SERVICE: 11/10/19 Discharge Plan Patient Name: NADER KELLER Facility: [facility]:[place] : 1935 Planned Disposition: Nursing Facility CANDIDA Cert Anticipated Discharge Date: 11/12/19 Discharge Date: Expected LOS: 3 Initial Reviewer: [email or web address] Initial Review Date: 11/09/2019 Generated: 11/10/19 8:04 am DCP- Discharge Planning Updated by [email or web address]: Saray Plummer on 11/10/19 6:[address] DC PLAN: Return to [facility]. - half-way resident. ANTICIPATED DC NEEDS: Unknown dc needs at this time. CM met with patient and her son, Sam to complete initial dc planning assessment. CM educated Sam on the CM role and verbal consent given by patient to complete assessment. CM verified patient's address, [facility]. phone number, and emergency contact phone numbers. Patient is currently is a resident at [facility]. Her son reports she has increased confusion r/t infection. She was just discharged on the for a UTI. She was better for a day at the half-way and become worse with confusion and not eating. In the ER during assessment patient was moaning and was not able to answer questions. Sam reports she will return to [facility] at time of discharge. Transportation provider at discharge will be [place]. Sam requests we call his cell phone number and not his home number. CM has fixed this on the facesheet. CM will continue to follow and will assist as needed with dc plans/needs. Saray Plummer RN, [facility] DCPIA - Discharge Planning Initial Assessment Updated by [id number]: Saray Plummer on 11/10/19 6:56 am * Is the patient Alert and Oriented? No * How many steps to enter\exit or inside your home? None * PCP Resident at [facility]. Dr. Licona * Pharmacy [facility] * Preadmission Environment [facility] * Facility Name [facility] * ADLs Partial Dependent * Partial ADLs (Assistance needed) Ambulation Bathing Dressing Medication Management Toileting * List name and contact numbers for known caregivers / representatives who currently or will assist patient after discharge: Sam Good - [facility] - [phone] * Verbal permission to speak to the caregivers and representatives has been obtained from the patient. Yes * Additional services required to return to the preadmission environment? No * Can the patient safely return to the preadmission environment? Yes * Has this patient been hospitalized within the prior 30 days at any hospital? Yes Last DP export: 11/10/19 5:58 am Patient Name: NADER KELLER Page 13374 at 0704 All edits/amendments must be made on the electronic document DICTATION DATE: 11/10/19703 INFORMATION SERVICES MANAGER: MYLES 11/10/19703 RPT#: [id number] DC DATE: STATUS: ADM IN [facility] [address] [place] [address] END OF REPORT
[2019-11-10 07:17] LABS: ALBUMIN 2.6 g/dL (3.4-5.0); ANION GAP 12.8 mmol/L (8-16); BILIRUBIN - TOTAL 0.6 mg/dL (0.2-1.3); CALCIUM 8.8 mg/dL (8.5-10.1); CARBON DIOXIDE 25.1 mmol/L (21.0-32.0); CREATININE - SERUM 0.8 mg/dL (0.6-1.3); MAGNESIUM - SERUM 1.6 mg/dL (1.8-2.4); PHOSPHOROUS 2.5 mg/dL (2.5-4.9); POTASSIUM - SERUM 3.9 mmol/L (3.5-5.1); PROTEIN - SERUM 6.8 g/dL (6.4-8.2); VALPROIC ACID (DEPAKOTE) 14.6 ug/mL (50.0-100.0)
--- NOTE | 2019-11-10 07:32 | NUR ---
PT LYING IN BED ON RIGHT SIDE, EVEN RISE AND FALL OF CHEST, NO S/SX OF DISTRESS, CL IN REACH BED IN LOWEST POSITION, ASSUME PT CARE
--- NOTE | 2019-11-10 09:21 | NUR ---
PT MG IS 1.6 STARTED EP. RETAKE MAG IN THE AM
--- NOTE | 2019-11-10 10:48 | NUR ---
PT DID NOT EAT BREAKFAST THIS MORNING TOOK MAYBE 2 SIPS OF JUICE. SAYS YES WHEN YOU ASK HER QUESTIONS BUT THEN WILL NOT OPEN MOUTH TO ASSIST US IN ASSISTING HER EAT. PT FAMILY AT BEDSIDE WAITING ON DOCTORS TO MAKE ROUNDS, REPLACED MAG THIS MORNING VIA IV, CONTINUE WITH PLAN OF CARE
[2019-11-10 11:00] VITALS: BP 174/85
--- NOTE | 2019-11-10 12:24 | NUR ---
I have reviewed this patient and I concur with the Shift Assessment completed by the Licensed Practical Nurse today this shift.
--- NOTE | 2019-11-10 13:45 | NUR ---
PT LYING IN BED ASLEEP, NO S/SX OF DISTRESS, NO FAMILY AT BEDSIDE, CONTINUE WITH PLAN OF CARE
[2019-11-10 14:37] VITALS: Ht 160 cm; Wt 61.2 kg
[2019-11-10 15:00] VITALS: BP 140/65
--- NOTE | 2019-11-10 17:26 | NUR ---
RECEIVED CALL FROM LAB THAT PT HAS GRAM + [facility] RELAYED MESSAGE TO BUZZ LYONS AND DR. TIWARI
--- NOTE | 2019-11-10 19:25 | NUR ---
PT LYING IN BED RESTING WITH EYES CLOSED. WAKES TO VERBAL STIMULI. WILL ANSWER YES OR NO AT TIMES TO QUESTIONS OR WILL NOT ANSWER AT ALL. IV LEFT HAND INFUSING LR @ 75. SCDS IN PLACE. ORIENTED TO SELF ONLY. DENIES NEEDS. CL IN REACH, KAY ON, WILL CTM
--- NOTE | 2019-11-10 21:45 | NUR ---
THIS NURSE HAS ATTEMPTED X3 TO GIVE PT HS MEDS. SHE REFUSES TO TAKE SIPS OF LIQUIDS OR TRY PUDDING/APPLE SAUCE TO GIVE MEDS IN. EDUCATED PT ON IMPORTANCE OF MEDS BUT PT WOULD NOT RESPOND AND ONLY SAID NO WHEN OFFERING ANYTHING TO EAT OR DRINK
[2019-11-11 06:01] LABS: BASOPHILS 0.5 % (0-2); EOSINOPHILS 0.4 % (0-7); HEMATOCRIT 29.4 % (36.0-48.0); HEMOGLOBIN 9.6 g/dL (12-16); IMMATURE GRANULOCYTES 0.2 % (0-5); LYMPHOCYTES 20.8 % (15-50); MCH 31.1 pg (26.0-34.0); MCHC 32.7 g/dL (31.0-37.0); MCV 95.1 fL (80.0-100.0); MEAN PLATELET VOLUME 9.7 fL (7.4-10.4); MONOCYTES 10.6 % (2-11); NEUTROPHILS 67.5 % (40-80); PLATELET COUNT 188 10x3/uL (130-400); RBC 3.09 10x6/uL (4.00-5.40); RDW 13.9 % (11.5-14.5)
[2019-11-11 06:08] LABS: ANION GAP 9.7 mmol/L (8-16); CALCIUM 8.2 mg/dL (8.5-10.1); CARBON DIOXIDE 27.9 mmol/L (21.0-32.0); CREATININE - SERUM 0.8 mg/dL (0.6-1.3); MAGNESIUM - SERUM 2.1 mg/dL (1.8-2.4); PHOSPHOROUS 2.7 mg/dL (2.5-4.9); POTASSIUM - SERUM 3.6 mmol/L (3.5-5.1)
[2019-11-11 06:12] LABS: WBC 9.2 10x3/uL (4.8-10.8)
[2019-11-11 07:00] VITALS: BP 161/71
--- NOTE | 2019-11-11 08:01 | NUR ---
PT LYING IN BED ON LEFT SIDE, SON AT [facility], PT STILL REFUSES TO EAT, DRINK OR TAKE MEDS, IV PATENT AND TREVINO IN PLACE. ASSUME PT CARE
[2019-11-11 08:39] VITALS: BP 161/71
--- NOTE | 2019-11-11 09:09 | EC ---
PATIENT:NADER KELLER DATE OF SERVICE: 11/09/19 SEX: F MEDICAL RECORD: [id number] DATE OF : [birth year] LOCATION:D.[facility] [address] AGE OF PATIENT: 83 ADMISSION DATE: 11/09/19 REFERRING PHYSICIAN: INTERPRETING PHYSICIAN: ES LE MD ECHOCARDIOGRAM REPORT ECHO CHARGES 5 ECHO LIMITED Date: 11/10/19 CLINICAL DIAGNOSIS: ATRIAL FIB ECHOCARDIOGRAPHIC MEASUREMENTS (adult normal given) AC root (d.<3.7cm) cm LV Septum d (<1.2 cm> cm Valve Excursion cm LV Septum (systole) cm Left Atria (s.<4.0cm> 5.4 cm LVPW d(<1.2cm) cm RV (d.<2.3cm) 4.5 cm LVPW (sytole) cm LV diastole(<5.6CM) cm MV E-F(>70mm/sec) cm LV systole cm LVOT Diameter cm MV exc.(>10mm) cm Est.ejection fraction (50-75%) % DOPPLER: LVIT cm/sec A cm/sec E cm/sec LA cm/sec RVSP 35 mmHg LVOT cm/sec AOP1/2T m/s Asc. Ao cm/sec RVOT cm/sec RA cm/sec PA cm/sec AV Gradient Peak mmHg AV Mean mmHg AV Area cm MV Gradient Peak mmHg MV Mean mmHg MV Area cm COMMENTS: Pre Press Manager: Godwin CALERO Stunner And Shackler: 3 Dr. Rodriguez TAPE# PACS Pericardial Effusion N DATE OF SERVICE: Adequate 2D, color flow imaging, spectral Doppler, and M-Mode. No LVH. LV internal dimension is normal. Wall motion is normal. EF is greater than or equal to 55%. Aortic valve is tricuspid. No evidence of stenosis by Doppler interrogation. Left atrium is dilated at 5.4 cm. Mitral valve is thickened. Mitral annular calcification with only mild MR. Right-sided chambers are grossly normal. Trace TR. ECHOCARDIOGRAM REPORT [id number] NADER KELLER TRANSINT:[id number] Voice Confirmation ID: [id number] DOCUMENT ID: [id number] ES LE MD at 0909 CC: [id number] DICTATION DATE: 11/10/19 1605 MIXER RUNNER: 11/11/[address] [facility] [address], [facility]
[2019-11-11 12:46] VITALS: BP 135/70
[2019-11-11 16:45] VITALS: BP 154/69
--- NOTE | 2019-11-11 19:30 | NUR ---
PT LYING IN BED WATCHING TV, ORIENTED TO SELF ONLY. ANSWERS SOME YES OR NO QUESTIONS. IV LEFT HAND INFUSING LR @ 75. TREVINO DRAINING YELLOW URINE. DENIES NEEDS AT THIS TIME, KAY ON. CL IN REACH, WILL CTM
[2019-11-11 20:00] VITALS: BP 149/84
--- NOTE | 2019-11-11 21:30 | NUR ---
PT REFUSED MULTIPLE ATTEMPTS TO GIVE HS MEDS. DID NOT WANT TO DRINK WATER, JUICE OR TEA WHEN OFFERED. WOULD NOT TAKE MEDS IN APPLE SAUCE. DENIES NEEDS OR PAIN. AKY ON, WILL CTM
--- NOTE | 2019-11-12 01:30 | NUR ---
PT MOANING LOUDLY, THIS NURSE ENTERED ROOM AND ASKED PT WHAT WAS WRONG, PT DID NOT RESPOND. ASKED PT IF SHE WAS HURTING, STATES NO. ASKED IF SHE WANTED SOMETHING TO DRINK, STATES NO. ASKED PT IF SHE WAS OK, STATES YES. PT STARTED MAKING SHIVERING NOISES, ASKED PT IF SHE WAS COLD, STATES YES. PULLED BLANKET OVER PT AND PLACED WARM BLANKET ON TOP. PT RELAXED WITH EYES CLOSED UPON LEAVING ROOM. KAY ON, WILL CTM
[2019-11-12 04:00] VITALS: BP 149/93
[2019-11-12 07:06] LABS: HEMATOCRIT 30.7 % (36.0-48.0); HEMOGLOBIN 9.9 g/dL (12-16); IMMATURE GRANULOCYTES 0.5 % (0-5); LYMPHOCYTES 18.7 % (15-50); MCH 30.6 pg (26.0-34.0); MCHC 32.2 g/dL (31.0-37.0); MCV 94.8 fL (80.0-100.0); MEAN PLATELET VOLUME 9.4 fL (7.4-10.4); MONOCYTES 10.1 % (2-11); NEUTROPHILS 68.7 % (40-80); PLATELET COUNT 194 10x3/uL (130-400); RBC 3.24 10x6/uL (4.00-5.40); RDW 13.7 % (11.5-14.5); WBC 8.4 10x3/uL (4.8-10.8)
[2019-11-12 07:26] LABS: CALC OSMOLALITY 263 mosm/kg (275-300); CALCIUM 8.5 mg/dL (8.5-10.1); CARBON DIOXIDE 25.4 mmol/L (21.0-32.0); CHLORIDE - SERUM 100 mmol/L (98-107); CREATININE - SERUM 0.7 mg/dL (0.6-1.3); GLUCOSE 69 mg/dL (74-106); PHOSPHOROUS 2.6 mg/dL (2.5-4.9); POTASSIUM - SERUM 3.5 mmol/L (3.5-5.1); SODIUM 134 mmol/L (136-145); UREA NITROGEN 8 mg/dL (7-18); eGFR NON AFRICAN AMERICAN 84 mL/min (90-120)
[2019-11-12 08:45] VITALS: BP 149/73
--- NOTE | 2019-11-12 10:46 | NUR ---
I have reviewed this patient and I concur with the Shift Assessment completed by the Licensed Practical Nurse today this shift.
[2019-11-12 12:46] VITALS: BP 172/81
--- NOTE | 2019-11-12 16:18 | NUR ---
OT NOTE: PT COMPLETED BED MOB WITH MAX A. PT REQUIRED CONSTANT CUES. PT COMPLETED HYGIENE TASKS WITH MOD A. PT COMPLETED UE AROM AX. 8-119 THANK YOU, EBEN CUNHA
[2019-11-12 17:23] VITALS: BP 151/74
--- NOTE | 2019-11-12 19:30 | NUR ---
PT LYING IN BED RESTING WITHOUT DISTRESS, ORIENTED TO SELF ONLY. IV LEFT HAND INFUSING LR @ 75. SCDS ON. KAY ON. DENIES NEEDS. CL IN REACH, WILL CTM
--- NOTE | 2019-11-12 21:45 | NUR ---
PT REFUSED MULTIPLE TIMES TO TAKE MEDICATION. PT WOULD NOT TAKE SIPS OF DRINK AND WOULD NOT TAKE THE MEDS IN APPLESAUCE. GAVE ANUSOL SUPP, PT DID NOT LIKE BEING TOUCHED OR TURNEG, YELLS AND TRIES TO HIT AT STAFF. SETTLED DOWN ONCE IN COMFORTABLE POSITION. KAY ON. CL IN REACH, WILL CTM
[2019-11-13] VITALS: BP 120/70
[2019-11-13 04:00] VITALS: BP 162/69
[2019-11-13 05:10] LABS: BASOPHILS 0.6 % (0-2); EOSINOPHILS 0.8 % (0-7); HEMATOCRIT 28.8 % (36.0-48.0); HEMOGLOBIN 9.6 g/dL (12-16); IMMATURE GRANULOCYTES 0.3 % (0-5); LYMPHOCYTES 12.3 % (15-50); MCH 30.9 pg (26.0-34.0); MCHC 33.3 g/dL (31.0-37.0); MEAN PLATELET VOLUME 9.2 fL (7.4-10.4); MONOCYTES 8.7 % (2-11); NEUTROPHILS 77.3 % (40-80); PLATELET COUNT 220 10x3/uL (130-400); RBC 3.11 10x6/uL (4.00-5.40); RDW 13.4 % (11.5-14.5); WBC 7.9 10x3/uL (4.8-10.8)
[2019-11-13 05:24] LABS: MCV 92.6 fL (80.0-100.0)
[2019-11-13 05:43] LABS: CALC OSMOLALITY 263 mosm/kg (275-300); CALCIUM 8.6 mg/dL (8.5-10.1); CARBON DIOXIDE 26.5 mmol/L (21.0-32.0); CHLORIDE - SERUM 99 mmol/L (98-107); CREATININE - SERUM 0.7 mg/dL (0.6-1.3); MAGNESIUM - SERUM 1.8 mg/dL (1.8-2.4); PHOSPHOROUS 2.8 mg/dL (2.5-4.9); POTASSIUM - SERUM 3.4 mmol/L (3.5-5.1); SODIUM 134 mmol/L (136-145); UREA NITROGEN 7 mg/dL (7-18); eGFR NON AFRICAN AMERICAN 84 mL/min (90-120)
[2019-11-13 05:44] LABS: GLUCOSE 69 mg/dL (74-106)
--- NOTE | 2019-11-13 07:05 | NUR ---
CONFUSED, RESTING IN BED. NO C/O PAIN. NO S/S OF ACUTE DISTRESS NOTED. UP WITH ASSIST, CHAIRFAST. IV TO LEFT HAND, LR INFUSING @ 75ML/HR. SITE PATENT WITHOUT REDNESS OR SWELLING. ON ELECTROLYTE PROTOCOL, POTASSIUM 3.4 FOLLOWING ELECTROLYTE PROTOCOL. TREVINO CATHETER PRESENT, URINE CONCENTRATED. SCDS PRESENT. DENIES ANY NEEDS AT THIS TIME. CALL LIGHT IN REACH. WILL CONTINUE TO MONITOR.
[2019-11-13 09:32] VITALS: BP 151/65
--- NOTE | 2019-11-13 12:40 | NUR ---
I have reviewed this patient and I concur with the Shift Assessment completed by the Licensed Practical Nurse today this shift.
--- NOTE | 2019-11-13 12:40 | NUR ---
I have reviewed this patient and I concur with the Shift Assessment completed by the Licensed Practical Nurse today this shift.
--- NOTE | 2019-11-13 13:49 | NUR ---
Nutrition follow-up: Diet: low sodium PO intake continues to be poor Confused per nursing Labss reviewed Wt: 135# PO intake continues to be poor May need to consider PEG tube placement for nutrition support 2/2 poor po intake and continued confusion. RDN following.
[2019-11-13 13:55] VITALS: BP 145/74
[2019-11-13 18:01] VITALS: BP 156/72
--- NOTE | 2019-11-13 18:41 | NUR ---
RESTING IN BED, EYES CLOSED. RESPIRATIONS EVEN AND UNLABORED. NO S/S OF ACUTE DISTRESS NOTED. AROUSES TO VOICE. DENIES ANY NEEDS AT THIS TIME. CALL LIGHT IN REACH. WILL CONTINUE TO MONITOR.
[2019-11-13 20:00] VITALS: BP 165/66
[2019-11-14] VITALS: BP 165/77
--- NOTE | 2019-11-14 04:35 | NUR ---
I have reviewed this patient and I concur with the Shift Assessment completed by the Licensed Practical Nurse today this shift.
[2019-11-14 05:39] LABS: BASOPHILS 0.9 % (0-2); EOSINOPHILS 1.3 % (0-7); HEMATOCRIT 28.7 % (36.0-48.0); HEMOGLOBIN 9.4 g/dL (12-16); IMMATURE GRANULOCYTES 0.1 % (0-5); LYMPHOCYTES 17.1 % (15-50); MCH 30.5 pg (26.0-34.0); MCHC 32.8 g/dL (31.0-37.0); MCV 93.2 fL (80.0-100.0); MEAN PLATELET VOLUME 9.4 fL (7.4-10.4); MONOCYTES 11.4 % (2-11); NEUTROPHILS 69.2 % (40-80); PLATELET COUNT 220 10x3/uL (130-400); RBC 3.08 10x6/uL (4.00-5.40); RDW 13.3 % (11.5-14.5); WBC 6.7 10x3/uL (4.8-10.8)
[2019-11-14 05:58] LABS: CALC OSMOLALITY 266 mosm/kg (275-300); CALCIUM 8.6 mg/dL (8.5-10.1); CARBON DIOXIDE 27.8 mmol/L (21.0-32.0); CHLORIDE - SERUM 100 mmol/L (98-107); CREATININE - SERUM 0.7 mg/dL (0.6-1.3); GLUCOSE 75 mg/dL (74-106); MAGNESIUM - SERUM 1.7 mg/dL (1.8-2.4); PHOSPHOROUS 2.8 mg/dL (2.5-4.9); POTASSIUM - SERUM 3.6 mmol/L (3.5-5.1); SODIUM 135 mmol/L (136-145); UREA NITROGEN 7 mg/dL (7-18); eGFR NON AFRICAN AMERICAN 84 mL/min (90-120)
--- NOTE | 2019-11-14 07:05 | NUR ---
RESTING IN BED, EYES CLOSED. RESPIRATIONS EVEN AND UNLABORED. AROUSES TO VOICE. NO C/O PAIN. NO S/S OF ACUTE DISTRESS NOTED. DENIES ANY NEEDS AT THIS TIME. CALL LIGHT IN REACH. WILL CONTINUE TO MONITOR.
[2019-11-14 07:50] VITALS: BP 155/85
[2019-11-14 13:24] VITALS: BP 111/75
[2019-11-14 16:43] VITALS: BP 129/65
[2019-11-14 19:30] VITALS: BP 113/61
--- NOTE | 2019-11-14 21:00 | NUR ---
LYING QUEITLY WITH EYES CLOSED.RESP UNLABORED. NO DISTRESS NOTED. IV TO LEFT HAND INTACT WITHOUT REDNESS OR EDEMA NOTED. CL IN REACH. FALL PRECAUTIONS IN PLACE.
[2019-11-15 00:30] VITALS: BP 176/84
--- NOTE | 2019-11-15 02:11 | NUR ---
I have reviewed this patient and I concur with the Shift Assessment completed by the Licensed Practical Nurse today this shift.
[2019-11-15 04:56] LABS: BASOPHILS 0.3 % (0-2); EOSINOPHILS 0.9 % (0-7); HEMATOCRIT 30.2 % (36.0-48.0); HEMOGLOBIN 9.8 g/dL (12-16); IMMATURE GRANULOCYTES 0.1 % (0-5); LYMPHOCYTES 15.8 % (15-50); MCH 30.2 pg (26.0-34.0); MCHC 32.5 g/dL (31.0-37.0); MCV 92.9 fL (80.0-100.0); MEAN PLATELET VOLUME 9.2 fL (7.4-10.4); MONOCYTES 8.2 % (2-11); NEUTROPHILS 74.7 % (40-80); RBC 3.25 10x6/uL (4.00-5.40); RDW 13.1 % (11.5-14.5); WBC 6.7 10x3/uL (4.8-10.8)
[2019-11-15 04:59] LABS: PLATELET COUNT 278 10x3/uL (130-400)
[2019-11-15 05:08] LABS: % SATURATION 16 % (15-55); IRON 23 ug/dl (35-150); TOTAL IRON BIND CAPACITY 140 ug/dl (260-445); UNSAT IRON BIND CAPACITY 117 ug/dl (150-375)
[2019-11-15 05:11] VITALS: BP 171/72
[2019-11-15 05:43] LABS: CALCIUM 8.6 mg/dL (8.5-10.1); CARBON DIOXIDE 29.2 mmol/L (21.0-32.0); CHLORIDE - SERUM 98 mmol/L (98-107); CREATININE - SERUM 0.7 mg/dL (0.6-1.3); FERRITIN 723 ng/mL (3-244); MAGNESIUM - SERUM 1.8 mg/dL (1.8-2.4); POTASSIUM - SERUM 3.6 mmol/L (3.5-5.1); SODIUM 132 mmol/L (136-145); eGFR NON AFRICAN AMERICAN 84 mL/min (90-120)
[2019-11-15 05:45] LABS: CALC OSMOLALITY 264 mosm/kg (275-300); GLUCOSE 117 mg/dL (74-106); UREA NITROGEN 11 mg/dL (7-18)
--- NOTE | 2019-11-15 07:10 | NUR ---
PT RESTING IN BED. NO SIGNS OF DISTRESS. IV TO RIGHT FORARM PATENT NO REDNESS OR TENDERNESS. ALL FALL PRECAUTIONS IN PLACE. DENIES ANY FURTHER NEED AT THIS TIME CALL LIGHT IN REACH. BED LOW POSITION. FAMILY AT BEDSIDE.
[2019-11-15 07:53] VITALS: BP 112/79
[2019-11-15 12:16] VITALS: BP 155/80
--- NOTE | 2019-11-15 15:13 | NUR ---
I have reviewed this patient and I concur with the Shift Assessment completed by the Licensed Practical Nurse today this shift.
[2019-11-15 17:04] VITALS: BP 157/73
[2019-11-15 19:30] VITALS: BP 160/82
--- NOTE | 2019-11-16 00:18 | NUR ---
RESTING QUEITLY WITH NO DISTRESS NOTED. ORIENTED TO PERSON ONLY. IV TO RFA INTACT WITHOUT REDNESS OR EDEMA NOTED. TREVINO PATENT AND DRAINING. CL IN REACH
[2019-11-16 00:42] VITALS: BP 162/80
--- NOTE | 2019-11-16 03:00 | NUR ---
I have reviewed this patient and I concur with the Shift Assessment completed by the Licensed Practical Nurse today this shift.
[2019-11-16 05:40] VITALS: BP 157/84
[2019-11-16 05:43] LABS: BASOPHILS 0.6 % (0-2); HEMATOCRIT 31.6 % (36.0-48.0); HEMOGLOBIN 10.4 g/dL (12-16); IMMATURE GRANULOCYTES 0.1 % (0-5); LYMPHOCYTES 15.8 % (15-50); MCH 30.4 pg (26.0-34.0); MCHC 32.9 g/dL (31.0-37.0); MCV 92.4 fL (80.0-100.0); MEAN PLATELET VOLUME 9.2 fL (7.4-10.4); MONOCYTES 7.7 % (2-11); NEUTROPHILS 74.8 % (40-80); PLATELET COUNT 307 10x3/uL (130-400); RBC 3.42 10x6/uL (4.00-5.40); RDW 13.3 % (11.5-14.5); WBC 7.1 10x3/uL (4.8-10.8)
[2019-11-16 06:49] LABS: ALBUMIN 2.2 g/dL (3.4-5.0); ALKALINE PHOSPHATASE 46 U/L (46-116); ALT (SGPT) 15 U/L (10-68); BILIRUBIN - TOTAL 0.21 mg/dL (0.2-1.3); CALC OSMOLALITY 264 mosm/kg (275-300); CALCIUM 8.8 mg/dL (8.5-10.1); CARBON DIOXIDE 28.5 mmol/L (21.0-32.0); CHLORIDE - SERUM 97 mmol/L (98-107); CREATININE - SERUM 0.6 mg/dL (0.6-1.3); GLUCOSE 117 mg/dL (74-106); POTASSIUM - SERUM 3.5 mmol/L (3.5-5.1); SODIUM 131 mmol/L (136-145); eGFR NON AFRICAN AMERICAN > 90 mL/min (90-120)
[2019-11-16 06:50] LABS: UREA NITROGEN 14 mg/dL (7-18)
--- NOTE | 2019-11-16 07:43 | NUR ---
ROUSES TO VERBAL STIMULATION. ORIENTED TO SELF. DIFFICULT TO ASSESS SHE IS MOSTLY NON VERBAL. LUNGS ARE CLEAR BUT DIMINISHED THROUGHOUT. NO COUGH NOTED. SKIN IS INTACT WITHOUT REDNESS. IV TO RIGHT FOREARM IS PATENT WITHOUT REDNESS AT INSERTION SITE. TREVINO PATENT WTIH TEA COLORED URINE. NO NEEDS NOTED. REPOSITIONED IN BED FOR COMFORT.
[2019-11-16 09:03] VITALS: BP 173/84
--- NOTE | 2019-11-16 09:30 | NUR ---
AM MEDS CRUSHED AND PUT IN PUDDING. PATIENT TOOK THEM WITH SOME RELUCTANCE. WILL MONITOR. REFUSED TO EAT ANY BREAKFAST.
--- NOTE | 2019-11-16 12:30 | NUR ---
REFUSED TO EAT ANY OF LUNCH. SON AT BEDSIDE AND STILL REFUSED TO EAT. TOOK FOLOARJEN IN PUDDING RELUNCTANTLY.
[2019-11-16 12:45] VITALS: BP 166/78
--- NOTE | 2019-11-16 16:24 | NUR ---
OT NOTE: PT REQUIRED MAX A FOR SIMPLE HYGIENE TASKS. PT REQUIRED MAX A FOR POSITIONING TO DECREASE PRESSURE. [phone] THANK YOU,EBEN CUNHA
[2019-11-16 17:21] VITALS: BP 142/71
--- NOTE | 2019-11-16 18:55 | NUR ---
REFUSED TO EAT SUPPER EVEN WITH ASSIST. NO CHANGES NOTED.
[2019-11-16 19:30] VITALS: BP 135/72
[2019-11-17 00:30] VITALS: BP 138/77
[2019-11-17 05:11] LABS: BASOPHILS 0.7 % (0-2); EOSINOPHILS 1.5 % (0-7); HEMATOCRIT 28.9 % (36.0-48.0); HEMOGLOBIN 9.5 g/dL (12-16); IMMATURE GRANULOCYTES 0.2 % (0-5); LYMPHOCYTES 18.6 % (15-50); MCH 30.1 pg (26.0-34.0); MCHC 32.9 g/dL (31.0-37.0); MCV 91.5 fL (80.0-100.0); MEAN PLATELET VOLUME 9.4 fL (7.4-10.4); MONOCYTES 8.7 % (2-11); NEUTROPHILS 70.3 % (40-80); PLATELET COUNT 297 10x3/uL (130-400); RBC 3.16 10x6/uL (4.00-5.40); RDW 13.3 % (11.5-14.5)
[2019-11-17 05:30] VITALS: BP 152/88
[2019-11-17 05:41] LABS: ALKALINE PHOSPHATASE 45 U/L (46-116); ALT (SGPT) 14 U/L (10-68); BILIRUBIN - TOTAL 0.23 mg/dL (0.2-1.3); CALC OSMOLALITY 264 mosm/kg (275-300); CALCIUM 8.5 mg/dL (8.5-10.1); CARBON DIOXIDE 27.4 mmol/L (21.0-32.0); CHLORIDE - SERUM 98 mmol/L (98-107); CREATININE - SERUM 0.6 mg/dL (0.6-1.3); GLUCOSE 94 mg/dL (74-106); POTASSIUM - SERUM 3.7 mmol/L (3.5-5.1); PROTEIN - SERUM 6.4 g/dL (6.4-8.2); SODIUM 132 mmol/L (136-145); UREA NITROGEN 12 mg/dL (7-18); eGFR NON AFRICAN AMERICAN > 90 mL/min (90-120)
--- NOTE | 2019-11-17 06:55 | NUR ---
RESTING IN BED, EYES CLOSED. RESPIRATIONS EVEN AND UNLABORED. AROUSES TO VOICE. CONFUSED, BUT CAN ANSWER SIMPLE QUESTIONS. SCDS ON. KAY ALARM ON. TREVINO CATHETER PRESENT. IV TO RIGHT FOREARM, PROCAL INFUSING @ 75ML/HR. SITE PATENT WITHOUT REDNESS OR SWELLING. DENIES ANY NEEDS AT THIS TIME. CALL LIGHT IN REACH. WILL CONTINUE TO MONITOR.
[2019-11-17 09:21] VITALS: BP 150/83
--- NOTE | 2019-11-17 13:10 | NUR ---
SLEEPING,WITHOUT SIGNS OF DISTRESS.
[2019-11-17 13:20] VITALS: BP 160/78
--- NOTE | 2019-11-17 13:50 | NUR ---
NUTRITION F/U PT WITH PROCALAMINE AT 75 CC/HR. NO INTAKE RECENT MEALS. WILL CONTINUE TO PROVIDE DIET. WILL ASSIST WITH TUBE FEEDS IF PEG TUBE PLACED. RD FOLLOWING
--- NOTE | 2019-11-17 13:57 | MORECARE ---
CASE MANAGEMENT DISCHARGE SUMMARY PATIENT: NADER KELLER UNIT: [id number] ADM DATE: 11/09/19 AGE: 84 : 33 SEX: F ROOM/BED: D.2207 AUTHOR: JUDITHDOC PHYSICIAN: REFERRING PHYSICIAN: ES BREWER MD DATE OF SERVICE: 11/17/19 Discharge Plan Patient Name: NADER KELLER Facility: [facility]:[place] : 1935 Planned Disposition: Nursing Facility CANDIDA Cert Anticipated Discharge Date: 11/12/19 Discharge Date: Expected LOS: 3 Initial Reviewer: [email or web address] Initial Review Date: 11/09/2019 Generated: 11/17/19 2:57 pm Comments DCP- Discharge Planning Updated by [email or web address]: April Taylor on 11/17/19 12:[address] SPOKE WITH PATIENT'S SON AND GRANDDAUGHTER THEY WOULD LIKE TO SPEAK WITH SOMEONE ABOUT [facility] VS HOSPICE AT [facility]. I EXPLAINED TO THEM THAT THEY DO NOT DO HOSPICE AT [facility]. THEY WOULD LIKE HER TO GO TO THE [facility] AT [facility]. MARIA LUISA SIGNED ALONG WITH THE IMM SIGNED. I HAVE SENT REFERRAL TO [facility] AT [facility]. THEY WILL COME SPEAK TO PATIENT'S FAMILY AT 3:00PM TODAY CM TO FOLLOW AND ASSIST WITH DC PLANNING DCP- Discharge Planning Updated by [email or web address]: Saray Plummer on 11/10/19 6:[address] DC PLAN: Return to [facility]. - snf resident. ANTICIPATED DC NEEDS: Unknown dc needs at this time. CM met with patient and her son, Sam to complete initial dc planning assessment. CM educated Sam on the CM role and verbal consent given by patient to complete assessment. CM verified patient's address, [facility]. phone number, and emergency contact phone numbers. Patient is currently is a resident at [facility]. Her son reports she has increased confusion r/t infection. She was just discharged on the for a UTI. She was better for a day at the long-term and become worse with confusion and not eating. In the ER during assessment patient was moaning and was not able to answer questions. Sam reports she will return to [facility] at time of discharge. Transportation provider at discharge will be [place]. Sam requests we call his cell phone number and not his home number. CM has fixed this on the facesheet. CM will continue to follow and will assist as needed with dc plans/needs. Saray Plummer RN, [facility] DCPIA - Discharge Planning Initial Assessment Updated by [email or web address]: Saray Plummer on 11/10/19 6:56 am * Is the patient Alert and Oriented? No * How many steps to enter\exit or inside your home? None * PCP Resident at [facility]. Dr. Licona * Pharmacy [facility] * Preadmission Environment [facility] * Facility Name [facility] * ADLs Partial Dependent * Partial ADLs (Assistance needed) Ambulation Bathing Dressing Medication Management Toileting * List name and contact numbers for known caregivers / representatives who currently or will assist patient after discharge: Sam Good - son - [phone] * Verbal permission to speak to the caregivers and representatives has been obtained from the patient. Yes * Additional services required to return to the preadmission environment? No * Can the patient safely return to the preadmission environment? Yes * Has this patient been hospitalized within the prior 30 days at any hospital? Yes External Providers External Provider: [facility] *(provides inpt [facility] Next Contact Date: Service Request Date: Service Type: Resolution: Reviewer: Comments: Last DP export: 11/10/19 6:04 am Patient Name: NADER KELLER Page 66231 at 1357 All edits/amendments must be made on the electronic document DICTATION DATE: 11/17/19 1357 SCHEME TECHNICIAN: MYLES 11/17/19 1357 RPT#: [id number] DC DATE: STATUS: ADM IN [facility] [address] [place] [address] END OF REPORT
--- NOTE | 2019-11-17 15:38 | MORECARE ---
CASE MANAGEMENT DISCHARGE SUMMARY PATIENT: NADER KELLER UNIT: [id number] ADM DATE: 11/09/19 AGE: 84 : 33 SEX: F ROOM/BED: D.2207 AUTHOR: JUDITHDOC PHYSICIAN: REFERRING PHYSICIAN: ES BREWER MD DATE OF SERVICE: 11/17/19 Discharge Plan Patient Name: NADER KELLER Facility: [facility]:[place] : 1935 Planned Disposition: Nursing Facility CANDIDA Cert Anticipated Discharge Date: 11/12/19 Discharge Date: Expected LOS: 3 Initial Reviewer: [email or web address] Initial Review Date: 11/09/2019 Generated: 11/17/19 4:38 pm Comments DCP- Discharge Planning Updated by [email or web address]: April Taylor on 11/17/19 2:[address] [place] with [facility] here meeting with family. Patient does not meet GIP for [facility], options given about a different plan. Family will talk it over and decide what they would like to do. Comfort care at [place] or to try hospice at a different facility. CM will continue to follow and assist. DCP- Discharge Planning Updated by [id number]: April Taylor on 11/17/19 12:[address] SPOKE WITH PATIENT'S SON AND GRANDDAUGHTER THEY WOULD LIKE TO SPEAK WITH SOMEONE ABOUT [facility] VS HOSPICE AT [facility]. I EXPLAINED TO THEM THAT THEY DO NOT DO HOSPICE AT [facility]. THEY WOULD LIKE HER TO GO TO THE [facility] AT [facility]. MARIA LUISA SIGNED ALONG WITH THE IMM SIGNED. I HAVE SENT REFERRAL TO BR[facility] AT [facility]. THEY WILL COME SPEAK TO PATIENT'S FAMILY AT 3:00PM TODAY CM TO FOLLOW AND ASSIST WITH DC PLANNING DCP- Discharge Planning Updated by [email or web address]: Saray Plummer on 11/10/19 6:[address] DC PLAN: Return to [facility]. - [facility] resident. ANTICIPATED DC NEEDS: Unknown dc needs at this time. CM met with patient and her son, Sam to complete initial dc planning assessment. CM educated Sam on the CM role and verbal consent given by patient to complete assessment. CM verified patient's address, [facility]. phone number, and emergency contact phone numbers. Patient is currently is a resident at [facility]. Her son reports she has increased confusion r/t infection. She was just discharged on the 4th for a UTI. She was better for a day at the detention and become worse with confusion and not eating. In the ER during assessment patient was moaning and was not able to answer questions. Sam reports she will return to [facility] at time of discharge. Transportation provider at discharge will be [place]. Sam requests we call his cell phone number and not his home number. CM has fixed this on the facesheet. CM will continue to follow and will assist as needed with dc plans/needs. Saray Plummer RN, [facility] DCPIA - Discharge Planning Initial Assessment Updated by [email or web address]: Saray Plummer on 11/10/19 6:56 am * Is the patient Alert and Oriented? No * How many steps to enter\exit or inside your home? None * PCP Resident at [facility]. Dr. Licona * Pharmacy [place] [facility] * Preadmission Environment [facility] * Facility Name [facility] * ADLs Partial Dependent * Partial ADLs (Assistance needed) Ambulation Bathing Dressing Medication Management Toileting * List name and contact numbers for known caregivers / representatives who currently or will assist patient after discharge: Sam Good - son - [phone] * Verbal permission to speak to the caregivers and representatives has been obtained from the patient. Yes * Additional services required to return to the preadmission environment? No * Can the patient safely return to the preadmission environment? Yes * Has this patient been hospitalized within the prior 30 days at any hospital? Yes Coverage Notice Reviewer: [id number] Samantha Taylor Notice Issued Date-Time: 11/17/2019 13:40 Notice Type: IM Discharge Notice Notice Delivered To: Family Member Relationship to Patient: Son Bandoleer Straightener Stamper Name: JOHN GOOD Delivery Method: HAND - Hand Delivered Marilyn Days: Prior Verbal Notification: Recipient Understood Notice: Yes Recipient Signature: Yes Med Rec Note Co-signed by Attending: Coverage Notice Comment: Reviewer: [email or web address] Samantha Taylor Notice Issued Date-Time: 11/17/2019 13:40 Notice Type: Patient Choice Letter Notice Delivered To: Family Member Relationship to Patient: Son Bandoleer Straightener Stamper Name: JOHN Delivery Method: - Marilyn Days: Prior Verbal Notification: Recipient Understood Notice: Yes Recipient Signature: Yes Med Rec Note Co-signed by Attending: Coverage Notice Comment: MARIA LUISA WITH [facility] Last DP export: 11/17/19 12:57 p Patient Name: NADER KELLER Page [phone] at 1538 All edits/amendments must be made on the electronic document DICTATION DATE: 11/17/191536 TRAINING GENERALIST: MYLES 11/17/191536 RPT#: [id number] DC DATE: STATUS: ADM IN [facility] [address] [place] [address] END OF REPORT
--- NOTE | 2019-11-17 17:12 | NUR ---
OT NOTE: TREADWELL ATTEMPTED TO INITIATE SELF FEEDING WITH NO SUCCESS. PT REQUIRED MAX/TOTAL A WITH FACE WASH. [id number] THANK YOU, EBEN CUNHA
[2019-11-17 17:18] VITALS: BP 157/78
--- NOTE | 2019-11-17 19:14 | NUR ---
RESTING IN BED, EYES CLOSED. RESPIRATIONS EVEN AND UNLABORED. NO C/O PAIN. NO S/S OF ACUTE DISTRESS NOTED. DENIES ANY NEEDS AT THIS TIME. CALL LIGHT IN REACH. FALL PRECAUTIONS IN PLACE. WILL CONTINUE TO MONITOR.
--- NOTE | 2019-11-17 19:20 | NUR ---
PATIENT LETHARGIC AND ORIENTED TO ONLY SELF. PATIENT WILL NOT ANSWER QUESTIONS OR FOLLOW REQUESTS. IV IN LEFT FA, PRO-KATHY @75. TREVINO CATHETER IN PLACE. BED RAILS X3. FALL PRECAUTIONS IN PLACE. BED SIDE TABLE AND CALL LIGHT WITHIN REACH.
[2019-11-17 19:30] VITALS: BP 150/77
[2019-11-18 00:30] VITALS: BP 161/78
[2019-11-18 05:30] VITALS: BP 199/84
[2019-11-18 07:41] LABS: ALKALINE PHOSPHATASE 42 U/L (46-116); ALT (SGPT) 17 U/L (10-68); CALC OSMOLALITY 264 mosm/kg (275-300); CALCIUM 8.4 mg/dL (8.5-10.1); CHLORIDE - SERUM 100 mmol/L (98-107); CREATININE - SERUM 0.6 mg/dL (0.6-1.3); GLUCOSE 96 mg/dL (74-106); POTASSIUM - SERUM 4.2 mmol/L (3.5-5.1); PROTEIN - SERUM 6.3 g/dL (6.4-8.2); SODIUM 133 mmol/L (136-145); UREA NITROGEN 11 mg/dL (7-18); eGFR NON AFRICAN AMERICAN > 90 mL/min (90-120)
[2019-11-18 07:44] LABS: BASOPHILS 0.7 % (0-2); EOSINOPHILS 1.8 % (0-7); HEMATOCRIT 28.3 % (36.0-48.0); HEMOGLOBIN 9.3 g/dL (12-16); IMMATURE GRANULOCYTES 0.2 % (0-5); LYMPHOCYTES 19.9 % (15-50); MCH 30.2 pg (26.0-34.0); MCHC 32.9 g/dL (31.0-37.0); MCV 91.9 fL (80.0-100.0); MEAN PLATELET VOLUME 9.2 fL (7.4-10.4); MONOCYTES 9.1 % (2-11); NEUTROPHILS 68.3 % (40-80); PLATELET COUNT 271 10x3/uL (130-400); RBC 3.08 10x6/uL (4.00-5.40); RDW 13.5 % (11.5-14.5); WBC 4.5 10x3/uL (4.8-10.8)
--- NOTE | 2019-11-18 08:00 | NUR ---
DIFFICULT TO AROUSE. CONFUSED. TURNED TO CHANGE BEDDING AND PATIENT REPEATING "OH MY GOD" BUT COOPERATIVE. SKIN INTACT WITHOUT REDNESS. IV TO RIGHT HAND PATENT WITHOUT REDNESS. LUNGS DIMINISHED BILATERALLY. HEART SOUNDS S1 AND S2 HEARD IN ALL BENITEZ. BOWEL SOUNDS ACTIVE X 4. SMALL BM NOTED ON CHANGING PATIENT. ONE LARGE HEMRRHOID NOTED. SMALL BLISTER TO LEFT UPPER SIDE. BED LOW. FALL PRECAUTIONS IN PLACE. CALL PANIAGUA AND PERSONAL ITEMS IN REACH. WILL CONTINUE TO MONITOR.
--- NOTE | 2019-11-18 09:25 | NUR ---
PATIENT REFUSING TO OPEN MOUTH AND TAKE AM MEDICATIONS.
[2019-11-18 09:38] VITALS: BP 129/79
[2019-11-18] MEDS ORDERED: BETAPACE 80 MG80 MG PO (09:45)
--- NOTE | 2019-11-18 10:39 | NUR ---
IV REMOVED FROM RIGHT HAND WITH TIP INTACT. PATIENT UNABLE TO SIGN DISCHARGE PAPERWORK. COSIGNED WITH SECOND NURSE. ABULANCE CALLED FOR DISCHARGE.
--- NOTE | 2019-11-18 10:45 | NUR ---
REPORT CALLED TO GERSON ROCHA AT [facility].
--- NOTE | 2019-11-18 10:45 | NUR ---
SPOKE WITH GERSON ROCHA FROM [facility] WHO STATED TO PULL TREVINO PRIOR TO DC. STATES WILL PLACE TREVINO BACK IN IF NEEDED.
--- NOTE | 2019-11-18 10:49 | NUR ---
TREVINO REMOVED FOR DC.
--- NOTE | 2019-11-18 12:19 | MORECARE ---
CASE MANAGEMENT DISCHARGE SUMMARY PATIENT: NADER KELLER UNIT: [id number] ADM DATE: 11/09/19 AGE: 84 : 33 SEX: F ROOM/BED: D.2207 AUTHOR: JUDITH,DOC PHYSICIAN: REFERRING PHYSICIAN: ES BREWER MD DATE OF SERVICE: 11/18/19 Discharge Plan Patient Name: NADER KELLER Facility: [facility]:[place] : 1935 Planned Disposition: Nursing Facility CANDIDA Cert Anticipated Discharge Date: 11/12/19 Discharge Date: 11/18/2019 Expected LOS: 3 Initial Reviewer: [email or web address] Initial Review Date: 11/09/2019 Generated: 11/18/19 1:19 pm Comments DCP- Discharge Planning Updated by [email or web address]: April Taylor on 11/18/19 11:[address] Patient was 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 When I got back from my meeting the patient had already been picked up by EMS. I attempted to call her son Sam to let him know, but I did not get a answer. There is a bag of clothes that did not go with the patient that was put in the closet on med surg by Alecia. I called [place] and spoke with Milagros to let her know and she was going to talk to Sam and let him know. (Sam was with his mother in her room ) DCP- Discharge Planning Updated by [id number]: April Taylor on 11/17/19 2:[address] [place] with [facility] here meeting with family. Patient does not meet GIP for [facility], options given about a different plan. Family will talk it over and decide what they would like to do. Comfort care at [place] or to try hospice at a different facility. CM will continue to follow and assist. DCP- Discharge Planning Updated by [email or web address]: April Taylor on 11/17/19 12:[address] SPOKE WITH PATIENT'S SON AND GRANDDAUGHTER THEY WOULD LIKE TO SPEAK WITH SOMEONE ABOUT [facility] VS HOSPICE AT [facility]. I EXPLAINED TO THEM THAT THEY DO NOT DO HOSPICE AT [facility]. THEY WOULD LIKE HER TO GO TO THE [facility] AT [facility]. MARIA LUISA SIGNED ALONG WITH THE IMM SIGNED. I HAVE SENT REFERRAL TO BRADLY AT [facility]. 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 ANTICIPATED DC NEEDS: Unknown dc needs at this time. CM met with patient and her son, Sam to complete initial dc planning assessment. CM educated Sam on the CM role and verbal consent given by patient to complete assessment. CM verified patient's address, [facility]. phone number, and emergency contact phone numbers. Patient is currently is a resident at [facility]. Her son reports she has increased confusion r/t infection. She was just discharged on the 4th for a UTI. She was better for a day at the correction and become worse with confusion and not eating. In the ER during assessment patient was moaning and was not able to answer questions. Sam reports she will return to [facility] at time of discharge. Transportation provider at discharge will be [place]. Sam requests we call his cell phone number and not his home number. CM has fixed this on the facesheet. CM will continue to follow and will assist as needed with dc plans/needs. Saray Plummer RN, [facility] DCPIA - Discharge Planning Initial Assessment Updated by [id number]: Saray Plummer on 11/10/19 6:56 am * Is the patient Alert and Oriented? No * How many steps to enter\exit or inside your home? None * PCP Resident at [facility]. Dr. Licona * Pharmacy [place] [facility] * Preadmission Environment [facility] * Facility Name [facility] * ADLs Partial Dependent * Partial ADLs (Assistance needed) Ambulation Bathing Dressing Medication Management Toileting * List name and contact numbers for known caregivers / representatives who currently or will assist patient after discharge: Sam Good - son - [phone] * Verbal permission to speak to the caregivers and representatives has been obtained from the patient. Yes * Additional services required to return to the preadmission environment? No * Can the patient safely return to the preadmission environment? Yes * Has this patient been hospitalized within the prior 30 days at any hospital? Yes External Providers External Provider: [facility] Next Contact Date: Service Request Date: Service Type: Resolution: Reviewer: Comments: Coverage Notice Reviewer: [id number] Samantha Taylor Notice Issued Date-Time: 11/17/2019 13:40 Notice Type: IM Discharge Notice Notice Delivered To: Family Member Relationship to Patient: Son Distributed Generation Project Manager Name: JOHN GOOD Delivery Method: HAND - Hand Delivered Marilyn Days: Prior Verbal Notification: Recipient Understood Notice: Yes Recipient Signature: Yes Med Rec Note Co-signed by Attending: Coverage Notice Comment: Reviewer: [id number] Samantha Taylor Notice Issued Date-Time: 11/17/2019 13:40 Notice Type: Patient Choice Letter Notice Delivered To: Family Member Relationship to Patient: Son Distributed Generation Project Manager Name: JOHN Delivery Method: - Marilyn Days: Prior Verbal Notification: Recipient Understood Notice: Yes Recipient Signature: Yes Med Rec Note Co-signed by Attending: Coverage Notice Comment: MARIA LUISA WITH [facility] Last DP export: 11/17/19 2:38 p Patient Name: NADER KELLER Page [phone] at 1219 All edits/amendments must be made on the electronic document DICTATION DATE: 11/18/19 121 PHOTOENGRAVING FINISHER: MYLES 11/18/19 1219 RPT#: [id number] DC DATE:11/18/19 STATUS: DIS IN [facility] [address] [place] [address] END OF REPORT
--- NOTE | 2019-11-20 08:28 | MORECARE ---
CASE MANAGEMENT DISCHARGE SUMMARY PATIENT: NADER KELLER UNIT: [id number] ADM DATE: 11/09/19 AGE: 84 : 33 SEX: F ROOM/BED: D.2207 AUTHOR: JUDITH,DOC PHYSICIAN: REFERRING PHYSICIAN: ES BREWER MD DATE OF SERVICE: 11/20/19 Discharge Plan Patient Name: NADER KELLER Facility: [facility]:[place] : 1935 Planned Disposition: Nursing Facility CANDIDA Cert Anticipated Discharge Date: 11/12/19 Discharge Date: 11/18/2019 Expected LOS: 3 Initial Reviewer: [email or web address] Initial Review Date: 11/09/2019 Generated: 11/20/19 9:28 am Comments DCP- Discharge Planning Updated by [email or web address]: April Taylor on 11/18/19 11:[address] Patient was discharged back to [place] to a 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 When I got back from my meeting the patient had already been picked up by EMS. I attempted to call her son Sam to let him know, but I did not get a answer. There is a bag of clothes that did not go with the patient that was put in the closet on med surg by Alecia. I called [place] and spoke with Milagros to let her know and she was going to talk to Sam and let him know. (Sam was with his mother in her room ) DCP- Discharge Planning Updated by [id number]: April Taylor on 11/17/19 2:[address] [place] with [facility] here meeting with family. Patient does not meet GIP for [facility], options given about a different plan. Family will talk it over and decide what they would like to do. Comfort care at [place] or to try hospice at a different facility. CM will continue to follow and assist. DCP- Discharge Planning Updated by [email or web address]: April Taylor on 11/17/19 12:[address] SPOKE WITH PATIENT'S SON AND GRANDDAUGHTER THEY WOULD LIKE TO SPEAK WITH SOMEONE ABOUT [facility] VS HOSPICE AT [facility]. I EXPLAINED TO THEM THAT THEY DO NOT DO HOSPICE AT [facility]. THEY WOULD LIKE HER TO GO TO THE [facility] AT [facility]. MARIA LUISA SIGNED ALONG WITH THE IMM SIGNED. I HAVE SENT REFERRAL TO BRADLY AT [facility]. 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 ANTICIPATED DC NEEDS: Unknown dc needs at this time. CM met with patient and her son, Sam to complete initial dc planning assessment. CM educated Sam on the CM role and verbal consent given by patient to complete assessment. CM verified patient's address, [facility]. phone number, and emergency contact phone numbers. Patient is currently is a resident at [facility]. Her son reports she has increased confusion r/t infection. She was just discharged on the 4th for a UTI. [facility] jail and become worse with confusion and not eating. In the ER during assessment patient was moaning and was not able to answer questions. Sam reports she will return to [facility] at time of discharge. Transportation provider at discharge will be [place]. Sam requests we call his cell phone number and not his home number. CM has fixed this on the facesheet. CM will continue to follow and will assist as needed with dc plans/needs. Saray Plummer RN, [facility] DCPIA - Discharge Planning Initial Assessment Updated by [email or web address]: Saray Plummer on 11/10/19 6:56 am * Is the patient Alert and Oriented? No * How many steps to enter\exit or inside your home? None * PCP Resident at [facility]. Dr. Licona * Pharmacy [place] [facility] * Preadmission Environment [facility] * Facility Name [facility] * ADLs Partial Dependent * Partial ADLs (Assistance needed) Ambulation Bathing Dressing Medication Management Toileting * List name and contact numbers for known caregivers / representatives who currently or will assist patient after discharge: Sam Good - son - [phone] * Verbal permission to speak to the caregivers and representatives has been obtained from the patient. Yes * Additional services required to return to the preadmission environment? No * Can the patient safely return to the preadmission environment? Yes * Has this patient been hospitalized within the prior 30 days at any hospital? Yes Coverage Notice Reviewer: [id number] Samantha Taylor Notice Issued Date-Time: 11/17/2019 13:40 Notice Type: IM Discharge Notice Notice Delivered To: Family Member Relationship to Patient: Son Asphalt Tamping Machine Operator Name: JOHN GOOD Delivery Method: HAND - Hand Delivered Marilyn Days: Prior Verbal Notification: Recipient Understood Notice: Yes Recipient Signature: Yes Med Rec Note Co-signed by Attending: Coverage Notice Comment: Reviewer: [id number] Taylor Notice Issued Date-Time: 11/17/2019 13:40 Notice Type: Patient Choice Letter Notice Delivered To: Family Member Relationship to Patient: Son Asphalt Tamping Machine Operator Name: JOHN Delivery Method: - Marilyn Days: Prior Verbal Notification: Recipient Understood Notice: Yes Recipient Signature: Yes Med Rec Note Co-signed by Attending: Coverage Notice Comment: MARIA LUISA WITH [facility] Last DP export: 11/18/19 11:19 a Patient Name: NADER KELLER Page [phone] at 0828 All edits/amendments must be made on the electronic document DICTATION DATE: 11/20/19827 FOIL SPOOLER: MYLES 11/20/19827 RPT#: [id number] DC DATE:11/18/19 STATUS: DIS IN [facility] [address] [place] [address] END OF REPORT
== END 2019-11-18 11:33 | DRG 689 ==
LOC: D.ER 15:31 → D.MS 18:12
PROVIDERS: Family Medicine; ADMIT Family Medicine; ATTEND Family Medicine
DX: N39.0 Urinary tract infection, site not specified (principal); G93.41 Metabolic encephalopathy; R40.2344 Coma scale, best motor response, flexion withdrawal, 24 hours or more after hospital admission; I48.20 Chronic atrial fibrillation, unspecified; G72.81 Critical illness myopathy; D64.9 Anemia, unspecified; F03.90 Unspecified dementia, unspecified severity, without behavioral disturbance, psychotic disturbance, mood disturbance, and anxiety; I10 Essential (primary) hypertension; M19.90 Unspecified osteoarthritis, unspecified site; Z86.73 Personal history of transient ischemic attack (TIA), and cerebral infarction without residual deficits; K21.9 Gastro-esophageal reflux disease without esophagitis; B96.20 Unspecified Escherichia coli [E. coli] as the cause of diseases classified elsewhere; B95.2 Enterococcus as the cause of diseases classified elsewhere; R40.2134 Coma scale, eyes open, to sound, 24 hours or more after hospital admission; R40.2244 Coma scale, best verbal response, confused conversation, 24 hours or more after hospital admission